=== PATIENT | male | born 1955 | race Hispanic/Latino ===

== ENCOUNTER 2017-01-24 18:27 | Emergency (ER) | payer MEDICAID, MEDICARE, OTHER ==
[2017-01-24 18:50] VITALS: TEMP 98.4; BMI 24.8
--- NOTE | 2017-01-24 19:16 | ED PDOC ---
Arrival/HPI - General Chief Complaint: Lower Extremity Problem/Injury Time Seen by Provider: 01/24/17 18:43 Historian: Patient - History of Present Illness Narrative History of Present Illness (Text): 01/24/17 19:20 61 y.o. male whose pmhx includes polycythemia vera and PAD with chronic claudication who comes to the ED with complaint of pain near the nail of the right big toe. He denies any injury or seeing any pus. He has no other pain in the foot and denies any history of gout. He reports no changes in his chronic claudication. He denies any fever or chest pain or sob. He takes aspirin daily but no other medications and reports continued smoking and has no primary care physician or any other physician he follows up with. Past Medical History - Past History Past History: No Previous - Infectious Disease Hx of Infectious Diseases: None - Tetanus Immunization Tetanus Immunization: Unknown - Cardiac Hx Peripheral Vascular Disease: Yes - Pulmonary Hx Respiratory Disorders: No - Neurological Hx Neurological Disorder: No - HEENT Hx HEENT Disorder: No - Renal Hx Renal Disorder: No - Endocrine/Metabolic Hx Endocrine Disorders: No - Hematological/Oncological Hx Blood Disorders: Yes Other/Comment: polycythemia vera - Integumentary Hx Dermatological Disorder: No - Musculoskeletal/Rheumatological Hx Falls: No - Gastrointestinal Hx Gastrointestinal Disorders: No - Genitourinary/Gynecological Hx Genitourinary Disorders: No - Psychiatric Hx Psychophysiologic Disorder: No Hx Substance Use: Yes (marijuana) - Surgical History Other/Comment: CARPAL TUNNEL - Suicidal Assessment Feels Threatened In Home Enviroment: No Family/Social History Family/Social History: No Known Family HX Smoking Status: Heavy Smoker > 10 Cigarettes Daily Hx Alcohol Use: Yes (weekly 3-4 beers) Hx Substance Use: Yes (marijuana) Allergies/Home Meds Allergies/Adverse Reactions: Allergies No Known Allergies Allergy (Verified 01/24/17 18:45) Review of Systems - Physician Review All systems were reviewed & negative as marked: Yes - Review of Systems Constitutional: Normal Respiratory: absent: SOB Cardiovascular: absent: Chest Pain Gastrointestinal: absent: Abdominal Pain, Nausea, Vomiting Musculoskeletal: Other (R big toe pain) Skin: Other (R big toe nail bed pain) Physical Exam Vital Signs Temp Pulse Resp BP Pulse Ox 01/24/17 18:43 98.4 F 88 18 135/95 H 97 Temperature: Afebrile Blood Pressure: Normal Pulse: Regular Respiratory Rate: Normal Appearance: Positive for: Well-Appearing, Non-Toxic, Comfortable Pain Distress: None Mental Status: Positive for: Alert and Oriented X 3 - Systems Exam Head: Present: Atraumatic, Normocephalic Pupils: Present: PERRL Conjunctiva: Present: Normal Mouth: Present: Moist Mucous Membranes Pharnyx: Present: Normal. No: ERYTHEMA, EXUDATE Neck: Present: Normal Range of Motion Respiratory/Chest: Present: Clear to Auscultation, Good Air Exchange. No: Respiratory Distress, Accessory Muscle Use Cardiovascular: Present: Regular Rate and Rhythm, Normal S1, S2. No: Murmurs Abdomen: Present: Normal Bowel Sounds. No: Tenderness, Distention, Peritoneal Signs Back: Present: Normal Inspection Upper Extremity: Present: Normal Inspection. No: Cyanosis, Edema Lower Extremity: Present: Normal ROM, Erythema (There is erythema at the periphery of the nailbed with tenderness in the region of the right big toe), Neurovascularly Intact. No: Edema, NORMAL PULSES (no DP pulses palpable or dopplerable in either foot but both feet are warm b/L), Cyanosis, Swelling, Temperature Abnormalties Neurological: Present: GCS=15, CN II-XII Intact, Speech Normal Skin: Present: Warm, Dry, Normal Color. No: Rashes, Cold Psychiatric: Present: Alert, Oriented x 3, Normal Insight, Normal Concentration Medical Decision Making ED Course and Treatment: 01/24/17 19:26 61 y.o. male with history of claudication/PAD who presents with peripheral nailbed pain of the right big toe. Area is warm and tender with no pus and findings are consistent with ingrown toenail. Pulses are not palpable or dopplerable, but such is the case for both feet which are warm, with no clinical cyanosis present or concern for critical limb ischemia at this time. Patient had abnormal ABIs last year but continues to smoke with no pmd and has not followed up. Will start on antibiotics for ingrown toenail and have him follow up with podiatry and Dr. Justice Will, who advised follow up last year. Will also give Dr. Hector's phone number for follow up, as the patient says he needs a pmd close to [address] [place] [address] where he lives, so he can walk there. Disposition/Present on Arrival - Present on Arrival Any Indicators Present on Arrival: No History of DVT/PE: No History of Uncontrolled Diabetes: No Urinary Catheter: No History of Decub. Ulcer: No History Surgical Site Infection Following: None - Disposition Have Diagnosis and Disposition been Completed?: Yes Diagnosis: Toe pain, right Disposition: HOME/ ROUTINE Disposition Time: 19:15 Patient Plan: Discharge Patient Problems: Current Active Problems Problem Status Onset Toe pain, right Acute Condition: GOOD Discharge Instructions (ExitCare): Ingrown Nail (ED) Additional Instructions: Stop smoking. Apply warm compresses to the affected area on the big toe. Take the antibiotics as prescribed. Make sure you follow up with podiatry, primary care, and Dr. Will. Return to the emergency department if any new concerning symptoms. Prescriptions: Cephalexin [Keflex] 500 mg PO TID #30 cap Sulfamethoxazole/Trimethoprim [Bactrim DS 800 mg-160 mg] 1 tab PO BID #20 tab Tramadol HCl/Acetaminophen [Ultracet Tablet] 1 - 2 tab PO Q8H PRN #20 tablet PRN Reason: Pain, Severe (8-10) Referrals: Venancio Hector MD [Staff Provider] - Follow up with primary Juan Junior DPM [Staff Provider] - Follow up with primary Justice Will MD [Staff Provider] - Follow up with primary
[2017-01-24] MEDS ORDERED: Tmp-Smz 800 mg-160 mg DS Tab PO STA (19:19)
[2017-01-24 19:35] VITALS: BP 127/83; PULSE 83; RESP 16; O2SAT 95
== END 2017-01-24 19:44 | disposition home or self-care (01) ==
LOC: ED 18:27
DX: M79.674 Pain in right toe(s) (principal)

== ENCOUNTER 2017-03-03 06:17 | Day surgery (SDC) | payer MEDICARE ==
[2017-02-26 13:17] VITALS: BMI 23.3
[2017-03-03] MEDS ORDERED: Lidocaine 2% Inj (20ml) ONE (06:40)
[2017-03-03] MEDS ORDERED: Iodixanol 320 MG/ML 100 ML BOTTLE IV ONE (06:41)
[2017-03-03] MEDS ORDERED: Iodixanol 320 MG/ML 200 ML BOTTLE IV ONE (06:41)
[2017-03-03] MEDS ORDERED: Nitroglycerin 50mg in D5W 50 MG/250 ML BOTTLE IV ONE (06:41)
[2017-03-03] MEDS ORDERED: Midazolam 2 MG/2 ML VIAL ONE ×3 (07:00→08:11)
[2017-03-03 07:04] LABS: BLOOD UREA NITROGEN 8 mg/dL (7-21); GFR AFRICAN-AMERICAN > 60; GFR NON-AFRICAN AMERICAN > 60
[2017-03-03 07:05] LABS: INR 0.99 (0.93-1.08); PARTIAL THROMBOPLASTIN TIME 27.7 Seconds (23.7-30.8); PROTHROMBIN TIME 10.7 Seconds (9.9-11.8)
[2017-03-03 07:10] LABS: BASO # 0.02 K/mm3 (0.0-2.0); BASO % 0.2 % (0.0-3.0); EOS # 0.6 (0.0-0.7); EOS % 5.3 % (1.5-5.0); GRAN # 6.72 (1.4-6.5); GRAN % 61.6 % (50.0-68.0); LYMPH # 2.6 (1.2-3.4); LYMPH % 24.2 % (22.0-35.0); MEAN CELL VOLUME 87.7 fl (80.0-105.0); MEAN CORPUSCULAR HEMOGLOBIN 31.4 pg (25.0-35.0); MEAN CORPUSCULAR HGB CONC 35.8 g/dl (31.0-37.0); MEAN PLATELET VOLUME 9.5 fl (7.0-11.0); MONO % 8.7 % (1.0-6.0); PLATELET COUNT 249 10^3/uL (120.0-450.0); RBC 5.83 10^6/uL (3.5-6.1); RED CELL DISTRIBUTION WIDTH 14.6 % (11.5-14.5); WHITE BLOOD COUNT 10.9 10^3/ul (4.5-11.0)
[2017-03-03 07:35] LABS: HEMOGLOBIN 18.3 g/dL (14.0-18.0)
[2017-03-03] MEDS ORDERED: Oxycodone/Acetaminophen 5/325 mg Tab PO PRN (08:45)
[2017-03-03] MEDS ORDERED: Sodium Chloride 0.45% 1,000 ML IV SCH (08:45)
[2017-03-03] MEDS ORDERED: Oxycodone/Acetaminophen 5/325 mg Tab ONE (08:59)
[2017-03-03] MEDS ORDERED: Oxycodone/Acetaminophen 5/325 mg Tab PO ONE (09:02)
[2017-03-03 09:32] VITALS: TEMP 97.6
[2017-03-03 13:16] VITALS: RESP 18
[2017-03-03 13:17] VITALS: BP 128/86; PULSE 78; O2SAT 100
--- NOTE | 2017-03-03 20:58 | VASCULAR ---
PROCEDURE: Abdominal aortogram and bilateral lower extremity runoff with right selective views. HISTORY: Smoker. Severe peripheral vascular disease. Right foot ischemia and rest pain. Previous complex right lower extremity endovascular intervention PHYSICIAN(S): Justice Will MD. TECHNIQUE: The relative risks and indications of the procedure were explained to the patient and consent obtained. The patient was hydrated prior to the procedure and the appropriate labs drawn. The patient was placed supine on the arteriogram table and the left groin prepped and draped in the usual sterile fashion. Conscious sedation and monitoring were provided throughout the procedure by a nurse. Via a left common femoral artery approach, a 5 Estonian sheath was placed in the left groin. Through the sheath and over a guidewire, a 5 Estonian flush catheter was placed in the abdominal aorta at the level of the renal arteries and a PA DSA abdominal aortogram performed. The catheter was pulled down to the aortic bifurcation and bilateral oblique DSA pelvic arteriograms performed. Overlapping bilateral lower extremity DSA arteriograms were obtained from the inguinal ligaments to the mid tibial arteries. The catheter was advanced over the bifurcation and placed in the right common femoral artery. A magnification view the distal run-off in lateral foot were obtained. The sheath was removed and hemostasis obtained. The patient tolerated the procedure well. FINDINGS: There are single renal arteries bilaterally which are patent. Calcification of the abdominal aorta is noted. There is a large marginal artery present, consistent with the patient's known proximal SMA occlusion. The aortic bifurcation is patent. The common and external iliac arteries are widely patent on two views. The internal iliac arteries are patent bilaterally. Right lower extremity: The right common femoral artery is patent. The right profunda femoral artery is hypertrophied. The right superficial femoral artery is occluded at its origin.. The right popliteal artery is occluded. The right trifurcation is occluded. Collaterals reconstitute a small distal right peroneal artery. The right anterior tibial and posterior tibial arteries are occluded. There is a large posterior collateral supplying the terminal posterior tibial artery. Extensive right pedal occlusive disease is seen. Left lower extremity: Left common femoral artery is patent. The left profunda femoral artery is hypertrophied.. The left superficial femoral artery is occluded at its origin. The left popliteal artery is occluded. The left trifurcation is occluded. There appears to be constitution of the mid left posterior tibial and anterior tibial arteries.. IMPRESSION: 1. Severe multilevel bilateral infrainguinal disease. 2. Long segment bilateral SFA popliteal and trifurcation occlusions. 3. Severe bilateral tibial occlusive disease. 4. Right pedal occlusive disease. 5. Large marginal artery consistent with the patient's known proximal SMA occlusion.
== END 2017-03-03 13:50 | disposition home or self-care (01) ==
LOC: SDSVAS 06:17
PROVIDERS: ATTEND Radiology Vascular & Interventional Radiology
DX: I70.221 Atherosclerosis of native arteries of extremities with rest pain, right leg (principal); F17.200 Nicotine dependence, unspecified, uncomplicated
CPT/HCPCS: 36246; 36415; 75625; 75716; 75774; 80048; 85025; 85610; 85730; 99152; C1760 ×2; C1769; C1887; C1894; J1644; J2250; J2405; J3010; J7030; Q9967

== ENCOUNTER 2017-07-16 17:00 | Inpatient (IN) | payer MEDICARE, MEDICAID, OTHER ==
[2017-07-16 17:05] VITALS: BMI 24.3
--- NOTE | 2017-07-16 17:33 | ED PDOC ---
Arrival/HPI - General Chief Complaint: Abdominal Pain Time Seen by Provider: 07/16/17 17:11 Historian: Patient - History of Present Illness Narrative History of Present Illness (Text): 07/16/17 17:26 A 62 year old male presents to the emergency department complaining of 3 week duration abdominal pain and lower back pain with lightheadedness. He notes that the pain has been worse for the past week. The patient states that even the pressure of his underwear waist band causes him pain. He states that he has not been able to eat and sleep due to pain. 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 Will. The patient denies fevers, chills, chest pain, shortness of breath, dyspnea on exertion, cough, nausea, vomiting, diarrhea, neck pain, urinary/bowel changes, or any other complaint. PMD: Dr. Coello Time/Duration: Other (3 weeks) Symptom Onset: Sudden Symptom Course: Unchanged Activities at Onset: Rest, Light Context: Home Past Medical History - Provider Review Nursing Documentation Reviewed: Yes - Past History Past History: No Previous - Infectious Disease Hx of Infectious Diseases: None - Tetanus Immunization Tetanus Immunization: Unknown - Cardiac Hx Pacemaker: No - Pulmonary Hx Respiratory Disorders: No - Neurological Hx Paralysis: No - HEENT Hx HEENT Disorder: No - Renal Hx Renal Disorder: No - Endocrine/Metabolic Hx Endocrine Disorders: No - Hematological/Oncological Hx Blood Transfusions: No - Integumentary Hx Dermatological Disorder: No - Musculoskeletal/Rheumatological Hx Musculoskeletal Disorders: Yes - Gastrointestinal Hx Gastrointestinal Disorders: No - Genitourinary/Gynecological Hx Genitourinary Disorders: No - Psychiatric Hx Emotional Abuse: No Hx Physical Abuse: No Hx Substance Use: No (DENIES) - Surgical History Other/Comment: CARPAL TUNNEL - Anesthesia Hx Anesthesia Reactions: No Hx Malignant Hyperthermia: No - Suicidal Assessment Feels Threatened In Home Enviroment: No Family/Social History - Physician Review Nursing Documentation Reviewed: Yes Family/Social History: No Known Family HX (Non- contributory) Smoking Status: Heavy Smoker > 10 Cigarettes Daily Hx Alcohol Use: Yes (weekly 3-4 beers) Hx Substance Use: No (DENIES) Allergies/Home Meds Allergies/Adverse Reactions: Allergies No Known Allergies Allergy (Verified 07/16/17 19:47) Home Medications: Home Meds Medication Instructions Recorded Confirmed Aspirin [Ecotrin] 81 mg PO DAILY 02/26/17 07/16/17 Review of Systems - Physician Review All systems were reviewed & negative as marked: Yes - Review of Systems Constitutional: absent: Fevers, Night Sweats Respiratory: absent: SOB Cardiovascular: absent: Chest Pain Gastrointestinal: Abdominal Pain. absent: Diarrhea, Nausea, Vomiting Physical Exam Vital Signs Reviewed: Yes Vital Signs Temp Pulse Resp BP Pulse Ox 07/16/17 19:55 77 17 120/67 98 07/16/17 18:49 70 18 142/78 100 07/16/17 17:05 97.8 F 88 18 136/88 98 07/16/17 17:04 97.8 F 88 17 136/88 98 Appearance: Positive for: Well-Appearing, Non-Toxic, Comfortable Pain Distress: None Mental Status: Positive for: Alert and Oriented X 3 - Systems Exam Head: Present: Atraumatic, Normocephalic Pupils: Present: PERRL Extroacular Muscles: Present: EOMI Conjunctiva: Present: Normal Mouth: Present: Moist Mucous Membranes Neck: Present: Normal Range of Motion Respiratory/Chest: Present: Clear to Auscultation, Good Air Exchange. No: Respiratory Distress, Accessory Muscle Use Cardiovascular: Present: Regular Rate and Rhythm, Normal S1, S2. No: Murmurs Abdomen: Present: Tenderness (Diffuse tenderness ) Back: Present: Normal Inspection Upper Extremity: Present: Normal Inspection. No: Cyanosis, Edema Lower Extremity: Present: Normal Inspection, NORMAL PULSES (Femoral pulses 2+). No: Edema Neurological: Present: GCS=15, CN II-XII Intact, Speech Normal Skin: Present: Warm, Dry, Normal Color. No: Rashes Psychiatric: Present: Alert, Oriented x 3, Normal Insight, Normal Concentration Medical Decision Making ED Course and Treatment: 07/16/17 17:36 Impression: A 62 year old male presents to the emergency department complaining of 3 week duration abdominal pain with associated back pain. Plan: -- Angio Abdomen/Pelvis CT -- EKG -- Labs -- Urinalysis -- Reassess and disposition Prior Visits: Notes and results from previous visits were reviewed. Patient was last seen in the emergency department on 01/24/17. The patient was seen in the emergency department for pain near the nail of the right toe. The patient was discharged home. Progress Notes: US Abdomen Limited, Right Upper Quadrant Dictated and Authenticated by: Ginny Thomas MD 07/16/2017 8:28 PM Eastern Time ([place] & [place]) IMPRESSION: No gallstones or ductal dilatation. Patient was not tender over the gallbladder - Lab Interpretations Lab Results: 07/16/17 17:20 07/16/17 17:20 Lab Results 07/16/17 17:50: pO2 24 L, VBG pH 7.41, VBG pCO2 43.0, VBG HCO3 27.3, VBG Total CO2 28.6 H, VBG O2 Sat (Calc) 58.9, VBG Base Excess 2.2 H, VBG Potassium 5.0, Glucose 86, Lactate 1.2, FiO2 21.0, Sodium 139.0, Chloride 102.0, Venous Blood Potassium 5.0 07/16/17 17:30: Blood Type O NEGATIVE, Antibody Screen Negative, BBK History Checked No verified bt 07/16/17 17:20: Sodium 144, Potassium 4.1, Chloride 105, Carbon Dioxide 25, Anion Gap 18, BUN 10, Creatinine 0.8, Est GFR ( Amer) > 60, Est GFR (Non- Af Amer) > 60, Random Glucose 91, Calcium 10.0, Total Bilirubin 1.0, AST 22, ALT 24, Alkaline Phosphatase 113, Total Creatine Kinase 24 L, Total Protein 8.3 , Albumin 4.6, Globulin 3.8, Albumin/Globulin Ratio 1.2, Lipase 1366 H 07/16/17 17:20: PT 12.0, INR 1.10 H, APTT 38.0 H 07/16/17 17:20: WBC 12.3 H, RBC 6.33 H, Hgb 19.1 H*, Hct 55.2 H*, MCV 87.2, MCH 30.2, MCHC 34.6, RDW 13.7, Plt Count 379, MPV 9.8, Gran % 69.7 H, Lymph % (Auto ) 20.3 L, Dent % (Auto) 6.6 H, Eos % (Auto) 3.2, Baso % (Auto) 0.2, Gran # 8.60 H, Lymph # 2.5, Dent # 0.8 H, Eos # 0.4, Baso # 0.02 - RAD Interpretation Radiology Orders: 07/16/17 18:14 GALLBLADDER & COMMON DUCT [US] Stat 07/17/17 07:00 ABD & PELVIS IV CONTRAST ONLY [CT] Routine - Medication Orders Current Medication Orders: Sodium Chloride (Sodium Chloride 0.9%) 1,000 mls @ 125 mls/hr IV .Q8H MADAI Discontinued Medications Hydromorphone HCl (Dilaudid) 1 mg IVP STAT STA Stop: 07/16/17 18:40 Last Admin: 07/16/17 18:46 Dose: 1 mg MAR Pain Assessment Document 07/16/17 18:46 CNR (Rec: 07/16/17 18:48 CNR [id number]) Pain Reassessment Is this a pain reassessment? Yes Location Pain Location Body Site Abdomen Description Description Constant IVP Administration Document 07/16/17 18:46 CNR (Rec: 07/16/17 18:48 CNR [id number]) Charges for Administration # of IVP Administrations 1 Hydromorphone HCl (Dilaudid) 1 mg IVP STAT STA Stop: 07/16/17 20:12 Sodium Chloride (Sodium Chloride 0.9%) 1,000 mls @ 999 mls/hr IV .Q1H1M STA Stop: 07/16/17 19:14 Last Admin: 07/16/17 18:22 Dose: 999 mls/hr eMAR Start Stop Document 07/16/17 18:22 CNR (Rec: 07/16/17 18:22 CNR [id number]) Intravenous Solution Start Date 07/16/17 Start Time 18:22 Morphine Sulfate (Morphine) 4 mg IVP STAT STA Stop: 07/16/17 18:05 Last Admin: 07/16/17 18:12 Dose: 4 mg MAR Pain Assessment Document 07/16/17 18:12 CNR (Rec: 07/16/17 18:12 CNR [id number]) Pain Reassessment Is this a pain reassessment? Yes Location Pain Location Body Site Abdomen Description Description Constant IVP Administration Document 07/16/17 18:12 CNR (Rec: 07/16/17 18:12 CNR [id number]) Charges for Administration # of IVP Administrations 1 Pneumococcal Polyvalent Vaccine (Pneumovax 23 Vaccine) 0.5 ml IM .ONCE ONE Stop: 07/16/17 20:39 Disposition/Present on Arrival - Present on Arrival Any Indicators Present on Arrival: No History of DVT/PE: No History of Uncontrolled Diabetes: No Urinary Catheter: No History of Decub. Ulcer: No History Surgical Site Infection Following: None - Disposition Have Diagnosis and Disposition been Completed?: Yes Diagnosis: Acute pancreatitis Disposition: HOSPITALIZED Disposition Time: 18:46 Condition: STABLE
[2017-07-16 18:00] LABS: BASO # 0.02 K/mm3 (0.0-2.0); BASO % 0.2 % (0.0-3.0); EOS # 0.4 (0.0-0.7); EOS % 3.2 % (1.5-5.0); GRAN # 8.6 (1.4-6.5); GRAN % 69.7 % (50.0-68.0); LYMPH # 2.5 (1.2-3.4); LYMPH % 20.3 % (22.0-35.0); MEAN CELL VOLUME 87.2 fl (80.0-105.0); MEAN CORPUSCULAR HEMOGLOBIN 30.2 pg (25.0-35.0); MEAN CORPUSCULAR HGB CONC 34.6 g/dl (31.0-37.0); MEAN PLATELET VOLUME 9.8 fl (7.0-11.0); MONO # 0.8 (0.1-0.6); MONO % 6.6 % (1.0-6.0); RBC 6.33 10^6/uL (3.5-6.1); RED CELL DISTRIBUTION WIDTH 13.7 % (11.5-14.5); WHITE BLOOD COUNT 12.3 10^3/ul (4.5-11.0)
[2017-07-16 18:02] LABS: VENOUS BLOOD GAS BASE EXCESS 2.2 mmol/L (0.0-2.0); VENOUS BLOOD GAS PO2 24 mm/Hg (30-55); VENOUS BLOOD PH 7.41 (7.32-7.43)
[2017-07-16] MEDS ORDERED: Morphine 4 mg/ml ISec IVP STA (18:04)
[2017-07-16 18:08] LABS: HEMOGLOBIN 19.1 g/dL (14.0-18.0)
[2017-07-16 18:11] LABS: ALB/GLOB RATIO 1.2 (1.1-1.8); ALBUMIN 4.6 g/dL (3.0-4.8); ALT/SGPT 24 U/L (7-56); AST/SGOT 22 U/L (17-59); BLOOD UREA NITROGEN 10 mg/dL (7-21); GFR AFRICAN-AMERICAN > 60; GFR NON-AFRICAN AMERICAN > 60; LIPASE 1366 U/L (23-300)
[2017-07-16 18:13] LABS: INR 1.1 (0.93-1.08)
[2017-07-16] MEDS ORDERED: Sodium Chloride 0.9% 1,000 ML IV STA (18:14)
[2017-07-16] MEDS ORDERED: HYDROmorphone 1 mg/ml ISec IVP STA ×2 (18:39→20:11)
--- NOTE | 2017-07-16 20:28 | US ---
EXAM: US Abdomen Limited, Right Upper Quadrant EXAM DATE/TIME: 07/16/2017 6:14 PM CLINICAL HISTORY: 62 years old, male; Pain; Abdominal pain; Generalized; Additional info: Pancreatitis TECHNIQUE: Real-time ultrasound of the right upper quadrant with image documentation. COMPARISON: There are no prior studies for comparison. FINDINGS: Liver: Liver appears mildly enlarged. Echotexture is uniform. There is hepatopedal flow in the main portal vein. Gallbladder: Gallbladder is distended with no stones, sludge or wall thickening. Common bile duct: Common bile duct measures 4 mm in diameter. Pancreas: Pancreas is partially obscured by bowel gas. Pancreatic duct measures approximately 3 mm. Right kidney: Right kidney is normal in size. There is a small right renal cyst. Aorta: Visualized portions of the aorta and inferior vena cava are unremarkable. IMPRESSION: No gallstones or ductal dilatation Patient was not tender over the gallbladder
[2017-07-16] MEDS ORDERED: Pneumococcal 23-Valent Vaccine IM ONE (20:38)
[2017-07-16] MEDS ORDERED: Influenza Vaccine 60 mcg/0.5 mL SYR (4YR UP) IM ONE (20:38)
[2017-07-16 22:45] LABS: URINE BILIRUBIN SMALL (NEGATIVE); URINE BLOOD NEGATIVE (NEGATIVE); URINE GLUCOSE (UA) NEGATIVE (NEGATIVE); URINE LEUKOCYTE ESTERASE NEGATIVE Leu/uL (NEGATIVE); URINE NITRATE NEGATIVE (NEGATIVE); URINE PROTEIN NEGATIVE mg/dL (<30 mg/dL); URINE UROBILINOGEN 0.2 E.U./dL (<1 E.U./dL)
[2017-07-16 22:48] LABS: URINE APPEARANCE CLEAR (CLEAR); URINE COLOR YELLOW (YELLOW)
[2017-07-17] MEDS: Sodium Chloride 0.9% 1,000 ML IV SCH ×3 (01:11→11:19)
[2017-07-17 07:14] LABS: BASO # 0.02 K/mm3 (0.0-2.0); BASO % 0.2 % (0.0-3.0); EOS # 0.7 (0.0-0.7); GRAN # 6.71 (1.4-6.5); GRAN % 65.5 % (50.0-68.0); LYMPH % 19.3 % (22.0-35.0); MEAN CELL VOLUME 86.8 fl (80.0-105.0); MEAN CORPUSCULAR HEMOGLOBIN 30.1 pg (25.0-35.0); MEAN CORPUSCULAR HGB CONC 34.6 g/dl (31.0-37.0); MEAN PLATELET VOLUME 9.3 fl (7.0-11.0); MONO # 0.8 (0.1-0.6); RBC 5.55 10^6/uL (3.5-6.1); RED CELL DISTRIBUTION WIDTH 13.8 % (11.5-14.5); WHITE BLOOD COUNT 10.3 10^3/ul (4.5-11.0)
[2017-07-17 07:20] LABS: IRON 65 ug/dL (45-180)
[2017-07-17 07:23] LABS: HEMOGLOBIN 16.7 g/dL (14.0-18.0); INR 1.15 (0.93-1.08); PROTHROMBIN TIME 12.7 SECONDS (9.4-12.5)
[2017-07-17] MEDS ORDERED: HYDROmorphone 1 mg/ml ISec IVP STA (07:28)
[2017-07-17 07:29] LABS: % IRON SATURATION 30 % (20-55); TOTAL IRON BINDING CAPACITY 220 ug/dL (261-462)
[2017-07-17 07:30] LABS: ALB/GLOB RATIO 1.2 (1.1-1.8); ALBUMIN 3.5 g/dL (3.0-4.8); ALT/SGPT 29 U/L (7-56); AMYLASE 109 U/L (35-125); AST/SGOT 16 U/L (17-59); BLOOD UREA NITROGEN 8 mg/dL (7-21); CALCIUM 8.9 mg/dL (8.4-10.5); GFR AFRICAN-AMERICAN > 60; GFR NON-AFRICAN AMERICAN > 60; LIPASE 135 U/L (23-300)
[2017-07-17 07:38] LABS: FREE T4 1.34 ng/dL (0.78-2.19)
[2017-07-17] MEDS ORDERED: Iohexol 350 MG/100 ML VIAL ONE (07:38)
--- NOTE | 2017-07-17 08:43 | CT ---
PROCEDURE: CT Abdomen and Pelvis with contrast HISTORY: pancreatitis COMPARISON: None. TECHNIQUE: Contrast dose: 100 cc Omnipaque 350 Radiation dose: Total exam DLP = 388.40 mGy-cm. This CT exam was performed using one or more of the following dose reduction techniques: Automated exposure control, adjustment of the mA and/or kV according to patient size, and/or use of iterative reconstruction technique. FINDINGS: LOWER THORAX: Unremarkable. LIVER: Hepatic steatosis. No focal masses. No intrahepatic bile duct dilatation or perihepatic ascites. GALLBLADDER AND BILE DUCTS: Unremarkable. PANCREAS: Unremarkable. No gross lesion or ductal dilatation. SPLEEN: Unremarkable. ADRENALS: Unremarkable. No mass. KIDNEYS AND URETERS: Unremarkable. No hydronephrosis. No solid mass. Incidental finding(s): Bilateral simple renal cysts. Nonobstructing punctate calculi left kidney non larger than 2 mm. VASCULATURE: Unremarkable. No aortic aneurysm. BOWEL: Diverticulosis without an acute inflammatory component or other associated pathologic process. APPENDIX: Normal appendix. PERITONEUM: Unremarkable. No free fluid. No free air. LYMPH NODES: Unremarkable. No enlarged lymph nodes. BLADDER: Unremarkable. REPRODUCTIVE: Unremarkable. BONES: No acute fracture. OTHER FINDINGS: None. IMPRESSION: No CT evidence of pancreatitis. Additional benign and/or incidental findings described above.
[2017-07-17 16:41] VITALS: BP 117/78; PULSE 78; RESP 18; TEMP 98.4; O2SAT 97
--- NOTE | 2017-07-17 18:26 | CARD ---
APPROVED REPORT EKG Measurement Heart [id number] MS [id number] <Conclusion> Sinus rhythm with sinus arrhythmia with occasional premature ventricular complexes Right atrial enlargement Borderline ECG
--- NOTE | 2017-07-17 21:34 | CON ---
DATE: 07/17/2017 REASON FOR CONSULTATION: Abdominal pain, elevated lipase. HISTORY OF PRESENT ILLNESS: This 62-year-old patient with significant past medical history of peripheral vascular disease status post angioplasty and thrombolysis, history of polycythemia vera being followed by Dr. Ortega, presented with lower abdominal discomfort, but his symptoms started about 3 weeks' ago with lower abdominal discomfort and also low back pain. The symptoms got worse, came to the ER and he was afraid of drinking and eating because of the fear of worsening of his pain. At the time of admission, he was found to have an elevated hemoglobin, hemoglobin was 19.1. Patient also noticed some difficulty in bowel movements over the last 2 to 3 weeks'. No bleeding per rectum, never had a colonoscopy done in the past. PAST MEDICAL HISTORY: Significant as above. SOCIAL HISTORY: Denies smoking or alcohol. REVIEW OF SYSTEMS: Positive as above otherwise unremarkable. Patient feels much better now, urination is better. PHYSICAL EXAMINATION GENERAL: The patient is lying on the bed, not in acute distress. VITAL SIGNS: Temperature 98.4, pulse 78, blood pressure 117/78. HEENT: Atraumatic. Anicteric. NECK: Supple. HEART: S1 and S2 heard. LUNGS: Bilateral air entry present. ABDOMEN: Soft. There is no tenderness. EXTREMITIES: No edema. No cyanosis. NEUROLOGIC: Alert, oriented, moves all the extremities. LABORATORY DATA: Hemoglobin on admission was 19.1, now it is 16.7, hematocrit 48.2, WBC 10.3, platelets 309. Chemistry is essentially unremarkable. IMPRESSION: This 62-year-old patient with significant peripheral vascular disease and admitted with abdominal pain, mainly the lower abdominal discomfort, bloating, found to have mildly elevated lipase level and patient had CT scan of the abdomen and pelvis done and it showed only diverticulosis, otherwise unremarkable. Gallbladder ultrasound showed no gallstones. Mild elevated lipase level is probably nonspecific may be secondary to low flow state. RECOMMENDATIONS: We would recommend: 1. Increase hydration. The patient has been on aspirin, advised to continue that. The patient would benefit from the elective colonoscopic evaluation. Patient is keen to go home, advised to continue the hydration at home. If there is any worsening of the symptoms, the patient was advised to come back to the ER. 2. Benefit from the elective endoscopy and colonoscopic evaluation and also the patient was advised to follow up with Dr. Nasir Ortega and PCP. Thank you very much for allowing us to participate in the care of the patient. Kane Zaragoza MD MTDAllyson
--- NOTE | 2017-07-17 21:51 | CON ---
HEMATOLOGY CONSULTATION DATE: HISTORY OF PRESENT ILLNESS: This is a 62-year-old man with an elevated hemoglobin. The patient tells me that he was told when he was in [facility] in the past that he had a very high red blood count, but was never treated for this. He does smoke cigarettes. Alcohol negative. PHYSICAL EXAMINATION: SKIN: No petechiae. No bruises. HEENT: Anicteric. NODES: Nonpalpable in axillary, cervical, supraclavicular or inguinal regions. LUNGS: Clear at present. No wheezing. No rhonchi. No rales. No rubs. HEART: S1 and S2. ABDOMEN: Shows no liver, no spleen, at present no tenderness and no rebound. EXTREMITIES: No edema. CORPORATE GENERAL MANAGER: No focal findings. LABORATORY DATA: On presentation yesterday, his RBC number was 6.33, then was come down to 5.55 which is a normal. The hemoglobin was 19.1 and it is down to 16.7, hematocrit 55 down to 48, MCV 87, and the platelet count is 310, white count is 10.3. This is most unlikely due to a primary polycythemia. I believe this is a combination of underlying cigarette smoking and some element of emphysema plus some element of dehydration. For his abdominal pain, he was not eating and drinking before he came into the hospital, this is now improved. I told him that I was going to check for the JAK2 chromosome abnormality just to make sure that to be completed polycythemia vera. My impression is this is secondary polycythemia. He should try to get off the cigarette smoking, we talked about that; and with hydration, he is somewhat better. So, there is no treatment at this point and I sent off the blood test that will come back in about a week. Nasir Ortega MD
--- NOTE | 2017-07-19 03:00 | DS ---
HOSPITAL COURSE: This is 62-year-old man, who came to the office once in January as a new patient. He presented to the emergency room with abdominal pain for several days and somewhere a history of polycythemia vera was discovered, which was not mentioned in the office. The patient reports midepigastric abdominal pain for few days. On laboratory evaluation in ER, his amylase was noted to be elevated. He was admitted with pancreatitis diagnosis and treated with IV fluids. The following morning, his amylase was normal. He was completely asymptomatic. His hemoglobin had dropped from 19 to 16 with IV hydration. Case was discussed with Cardiology, and GI. Hematology notes were appreciated. JAK2 tests were ordered to confirm the diagnosis of polycythemia vera, but this will take several days. Since the patient was asymptomatic and comfortable, he was ready for discharge to home. FINAL DISCHARGE DIAGNOSES: 1. Pancreatitis, diagnosis made by elevated amylase and symptoms of midepigastric abdominal pain. 2. Questionable history of polycythemia vera versus acute hemoconcentration versus secondary to tobacco use. 3. Peripheral vascular disease. 4. Tobacco use disorder. 5. Chronic obstructive pulmonary disease. The patient will follow up with us in the office in approximately 1 week's time. Venancio Hectro MD AUGUST
--- NOTE | 2017-07-19 03:04 | HP ---
CHIEF COMPLAINT: Mid epigastric abdominal pain. HISTORY OF PRESENT ILLNESS: This is a 62-year-old man relatively new patient to my practice, so I am meeting for the first time here in the hospital. He presented to the Emergency Room [facility], [place] complaining of worsening mid gastric abdominal pain. In the ER, amylase was found to be elevated, diagnosis of pancreatitis was made. Ultrasound and CT scan of the abdomen were negative. Patient was treated with IV fluids. His hemoglobin was noted to be high. There was questionable history of polycythemia vera, although at one time the patient was in the office he made no mention of this to us and he was admitted. PAST MEDICAL HISTORY: Significant for painful ingrown toenail in 01/2017, peripheral vascular disease, followed by Dr. Justice Will, COPD, tobacco use, for which he takes Pletal 100 mg b.i.d. in the past, but has stopped taking them now. His compliance with aspirin 81 mg daily is uncertain. ALLERGIES: HE HAS NO KNOWN ALLERGIES. SOCIAL HISTORY: He continues to smoke but less than one pack of cigarettes per day. Rarely drinks alcohol. Does not drink coffee. Eats a regular diet. He is disabled from work due to his peripheral vascular disease. 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 He is single with no children, . FAMILY HISTORY: Coronary artery disease, his mother had breast cancer as did his sister. His father of stroke and coronary artery disease and his 3 other sisters are alive and well. REVIEW OF SYSTEMS: On multiple point is negative other than peripheral artery disease, claudication, and symptoms related to smoking, cough, and COPD. PHYSICAL EXAMINATION GENERAL: Patient is seen in Emergency Room this night with mid epigastric pain. HEENT: Conjunctivae are pink, mucous membranes are moist. LUNGS: Reported to be clear. HEART: Regular, not tachycardiac. EXTREMITIES: Showed no edema. IMPRESSION: Pancreatitis with elevated amylase, although I am uncertain as to the cause as gall bladder, bile ducts looked normal. There is no history of alcohol consumption or elevated triglycerides. I wonder if this could be related to ischemia as is his peripheral artery disease. PLAN: GI consultation and Hematology consultation called to confirm diagnosis. We will follow closely and continue IV hydration and analgesics on p.r.n. basis. Venancio Hector MD AUGUST
--- NOTE | 2017-07-22 03:24 | CON ---
DATE: 07/21/2017 TIME: 4:30 p.m. CHIEF COMPLAINT/HISTORY OF PRESENT ILLNESS: This is a noncompliant 62-year-old smoker with probable secondary polycythemia vera, who has had two recent visits to the emergency room for significant abdominal pain. His white count was elevated. He describes a crampy abdominal pain for the past several days. He denies bloody bowel movements. He has not been eating. PAST MEDICAL HISTORY: Significant for polycythemia vera. Confusing genetic markers have been obtained in the past. He has been worked up by Dr. Ortega. He is a heavy smoker and noncompliant. An aortogram and runoff was performed in February,. This revealed bilateral SFA, popliteal, trifurcation, and tibial occlusive disease. He is not a candidate for endovascular therapy. He was evaluated by Dr. Dela Cruz and not considered a good candidate for bypass. He has been on antiplatelet therapy. I reviewed his relevant imaging. In February, he had a markedly enlarged NURY, which collateralized to his proximal SMA occlusion. There was a 50% focal stenosis of the proximal NURY. His celiac axis was patent. Since that time, he has thrombosed his large NURY. Reviewed the imaging, this appears to be a thrombotic or embolic event rather than atherosclerotic progression. All options were discussed with the patient and his multiple referrals. We will attempt to open either the SMA preferably or the NURY. Catheter thrombolysis may need to be performed given the probable soft thrombus present. The patient should have a thorough cardiac evaluation to exclude cardioembolic events. He should have his polycythemia reevaluated and treated. I, believe, that he should be on oral anticoagulation, preferably a DOAC going forward. He must quit smoking, which I explained to him once again. Justice Will MD AUGUST
== END 2017-07-17 19:13 | disposition home or self-care (01) | DRG 440 ==
LOC: ED 17:00 → ERH 18:46 → 5RNO 20:20 → OBSVTOIN 07-17 16:35
PROVIDERS: ADMIT Internal Medicine; ATTEND Internal Medicine
DX: K85.90 Acute pancreatitis without necrosis or infection, unspecified (principal); D45 Polycythemia vera; F17.210 Nicotine dependence, cigarettes, uncomplicated; I73.9 Peripheral vascular disease, unspecified; J44.9 Chronic obstructive pulmonary disease, unspecified; Z91.19 Patient's noncompliance with other medical treatment and regimen; Z79.82 Long term (current) use of aspirin; Z80.3 Family history of malignant neoplasm of breast; Z82.3 Family history of stroke; Z82.49 Family history of ischemic heart disease and other diseases of the circulatory system

== ENCOUNTER 2017-07-19 05:13 | Inpatient (IN) | payer MEDICARE, MEDICAID, OTHER ==
[2017-07-19 05:21] VITALS: BMI 23.0
--- NOTE | 2017-07-19 05:25 | ED PDOC ---
Arrival/HPI - General Time Seen by Provider: 07/19/17 05:17 Historian: Patient - History of Present Illness Narrative History of Present Illness (Text): 07/19/17 05:24 David Jordan is a 62 year old male, whose past medical history includes peripheral vascular disease and COPD, who presents to the Emergency department complaining of lower abdominal pain, worsening tonight. Patient also notes some associated light-headedness. Patient was recently admitted to the hospital on 07/16/2017 for similar symptoms and seen by GI, advised to schedule outpatient colonscopy. Patient denies any fever, chills, chest pain, shortness of breath, nausea, vomiting, diarrhea, urinary symptoms, back pain, neck pain, headache, dizziness, or any other complaints. Time/Duration: Other (few days) Symptom Onset: Gradual Symptom Course: Intermittent, Worsening Activities at Onset: Light Context: Home Past Medical History - Provider Review Nursing Documentation Reviewed: Yes - Past History Past History: No Previous - Infectious Disease Hx of Infectious Diseases: None - Tetanus Immunization Tetanus Immunization: Unknown - Cardiac Hx Pacemaker: No - Pulmonary Hx Respiratory Disorders: No - Neurological Hx Paralysis: No - HEENT Hx HEENT Disorder: No - Renal Hx Renal Disorder: No - Endocrine/Metabolic Hx Endocrine Disorders: No - Hematological/Oncological Hx Blood Transfusions: No - Integumentary Hx Dermatological Disorder: No - Musculoskeletal/Rheumatological Hx Musculoskeletal Disorders: Yes - Gastrointestinal Hx Gastrointestinal Disorders: No - Genitourinary/Gynecological Hx Genitourinary Disorders: No - Psychiatric Hx Emotional Abuse: No Hx Physical Abuse: No Hx Substance Use: No (DENIES) - Surgical History Other/Comment: CARPAL TUNNEL - Anesthesia Hx Anesthesia Reactions: No Hx Malignant Hyperthermia: No - Suicidal Assessment Feels Threatened In Home Enviroment: No Family/Social History - Physician Review Nursing Documentation Reviewed: Yes Family/Social History: Unknown Family HX Smoking Status: Heavy Smoker > 10 Cigarettes Daily Hx Alcohol Use: Yes (weekly 3-4 beers) Hx Substance Use: No (DENIES) Allergies/Home Meds Allergies/Adverse Reactions: Allergies No Known Allergies Allergy (Verified 07/19/17 05:21) Home Medications: Home Meds Medication Instructions Recorded Confirmed No Known Home Med 07/19/17 07/19/17 Review of Systems - Physician Review All systems were reviewed & negative as marked: Yes - Review of Systems Constitutional: Normal. absent: Fevers Eyes: Normal ENT: Normal Respiratory: Normal. absent: SOB, Cough Cardiovascular: Normal. absent: Chest Pain Gastrointestinal: Abdominal Pain. absent: Diarrhea Genitourinary Male: Normal. absent: Dysuria, Frequency, Hematuria, Urinary Output Changes Musculoskeletal: Normal. absent: Back Pain, Neck Pain Skin: Normal. absent: Rash Neurological: Normal. absent: Headache, Dizziness Endocrine: Normal Hemo/Lymphatic: Normal Psychiatric: Normal Physical Exam Vital Signs Reviewed: Yes Temperature: Afebrile Blood Pressure: Normal Pulse: Regular Respiratory Rate: Normal Appearance: Positive for: Well-Appearing, Non-Toxic, Comfortable Pain Distress: None Mental Status: Positive for: Alert and Oriented X 3 - Systems Exam Head: Present: Atraumatic, Normocephalic Pupils: Present: PERRL Extroacular Muscles: Present: EOMI Conjunctiva: Present: Normal Mouth: Present: Moist Mucous Membranes Pharnyx: Present: Normal Neck: Present: Normal Range of Motion Respiratory/Chest: Present: Clear to Auscultation, Good Air Exchange. No: Respiratory Distress, Accessory Muscle Use Cardiovascular: Present: Regular Rate and Rhythm, Normal S1, S2. No: Murmurs Abdomen: Present: Tenderness (lower abdomen), Normal Bowel Sounds. No: Distention, Peritoneal Signs, Rebound, Guarding Back: Present: Normal Inspection Upper Extremity: Present: Normal Inspection. No: Cyanosis, Edema Lower Extremity: Present: Normal Inspection. No: Edema Neurological: Present: GCS=15, CN II-XII Intact, Speech Normal, Motor Func Grossly Intact, Normal Sensory Function Skin: Present: Warm, Dry, Normal Color. No: Rashes Psychiatric: Present: Alert, Oriented x 3, Normal Insight, Normal Concentration Medical Decision Making ED Course and Treatment: 07/19/17 05:25 Impression: 62 year old male complaining of lower abdominal pain over past few days, worsening tonight. Plan: -- EKG -- Labs, lipase -- IV fluids -- Toradol -- Reassess and disposition Prior Visits: Notes and results from previous visits were reviewed. On 07/16/2017, pt was seen in the Emergency department for abdominal pain, lower back pain, and light-headedness. Pt was admitted to the hospital for further evaluation. Progress Notes: Reviewed EKG, NSR at 85 bpm. Occasional PAC. Non-specific ST changes. - Lab Interpretations Lab Results: 07/19/17 05:43 07/19/17 05:43 Lab Results 07/19/17 05:43: WBC 17.6 H D, RBC 5.82, Hgb 17.6, Hct 50.2, MCV 86.3, MCH 30.2, MCHC 35.1, RDW 13.9, Plt Count 338, MPV 9.6 07/19/17 05:43: Sodium 144, Potassium 3.9, Chloride 105, Carbon Dioxide 28, Anion Gap 15, BUN 9, Creatinine 0.7 L, Est GFR ( Amer) > 60, Est GFR (Non -Af Amer) > 60, Random Glucose 141 H, Calcium 9.6, Total Bilirubin 0.7, AST 26, ALT 26, Alkaline Phosphatase 94, Total Protein 7.5, Albumin 4.2, Globulin 3.3, Albumin/Globulin Ratio 1.3, Lipase 106 - EKG Interpretation Interpreted by ED Physician: Yes Type: 12 lead EKG - Medication Orders Current Medication Orders: Discontinued Medications Sodium Chloride (Sodium Chloride 0.9%) 1,000 mls @ 999 mls/hr IV .Q1H1M STA Stop: 07/19/17 06:27 Last Admin: 07/19/17 05:49 Dose: 999 mls/hr eMAR Start Stop Document 07/19/17 05:49 AD (Rec: 07/19/17 05:49 AD [id number]) Intravenous Solution Start Date 07/19/17 Start Time 05:49 Ketorolac Tromethamine (Toradol) 30 mg IVP ONCE ONE Stop: 07/19/17 05:28 Last Admin: 07/19/17 05:49 Dose: 30 mg MAR Pain Assessment Document 07/19/17 05:49 AD (Rec: 07/19/17 05:50 AD [id number]) Pain Reassessment Is this a pain reassessment? No Presence of Pain Presence of Pain Yes Pain Scale Used Pain Scale Used Numeric Location Pain Location Body Site Abdomen Description Intensity of Pain at present 10 IVP Administration Document 07/19/17 05:49 AD (Rec: 07/19/17 05:50 AD [id number]) Charges for Administration # of IVP Administrations 1 Morphine Sulfate (Morphine) 4 mg IVP STAT STA Stop: 07/19/17 06:26 - Transfer of Care Patient signed out to Dr:: Carolin Pending Radiology Studies:: CT Abdomen/pelvis/reassess/final disposition - Scribe Statement Chelle Sun Provider Scribe Attestation: All medical record entries made by the Scribe were at my direction and personally dictated by me. I have reviewed the chart and agree that the record accurately reflects my personal performance of the history, physical exam, medical decision making, and the department course for this patient. I have also personally directed, reviewed, and agree with the discharge instructions and disposition. Disposition/Present on Arrival - Present on Arrival Any Indicators Present on Arrival: No History of DVT/PE: No History of Uncontrolled Diabetes: No Urinary Catheter: No History Surgical Site Infection Following: None - Disposition Have Diagnosis and Disposition been Completed?: No Diagnosis: Abdominal pain Disposition Time: 07:00 Patient Problems: Current Active Problems Problem Status Onset Abdominal pain Acute Condition: STABLE
[2017-07-19] MEDS ORDERED: Sodium Chloride 0.9% 1,000 ML IV STA (05:27)
[2017-07-19 06:04] LABS: HEMOGLOBIN 17.6 g/dL (14.0-18.0); MEAN CELL VOLUME 86.3 fl (80.0-105.0); MEAN CORPUSCULAR HEMOGLOBIN 30.2 pg (25.0-35.0); MEAN CORPUSCULAR HGB CONC 35.1 g/dl (31.0-37.0); MEAN PLATELET VOLUME 9.6 fl (7.0-11.0); RBC 5.82 10^6/uL (3.5-6.1); RED CELL DISTRIBUTION WIDTH 13.9 % (11.5-14.5); WHITE BLOOD COUNT 17.6 10^3/ul (4.5-11.0)
[2017-07-19] MEDS ORDERED: Morphine 4 mg/ml ISec IVP STA ×2 (06:25→08:06)
[2017-07-19 06:33] LABS: ALB/GLOB RATIO 1.3 (1.1-1.8); ALBUMIN 4.2 g/dL (3.0-4.8); ALT/SGPT 26 U/L (7-56); AST/SGOT 26 U/L (17-59); BLOOD UREA NITROGEN 9 mg/dL (7-21); CALCIUM 9.6 mg/dL (8.4-10.5); GFR AFRICAN-AMERICAN > 60; GFR NON-AFRICAN AMERICAN > 60; LIPASE 106 U/L (23-300)
--- NOTE | 2017-07-19 08:04 | ED PDOC ---
Physical Exam Vital Signs Reviewed: Yes Vital Signs Temp Pulse Resp BP Pulse Ox 07/19/17 13:25 98 F 67 20 119/72 99 07/19/17 11:49 98 F 75 18 119/72 07/19/17 10:06 98 F 75 19 119/72 99 07/19/17 07:14 98.5 F 98 H 18 149/85 100 Appearance: Positive for: Well-Appearing, Non-Toxic, Comfortable Pain Distress: None Mental Status: Positive for: Alert and Oriented X 3 Medical Decision Making ED Course and Treatment: 07/19/17 07:05 Case signed out to me, by Dr. Sumner. A 62 year old male presents with lower abdominal pain. Pending CT abdomen, reassessment and final disposition. 900 Dr Hector saw the pt in the ED and will admit. 1500 Dr Mila baldwin the pt in the ED [address] Maciel who reviewed the CT. He rec starting heparin at this time. Dr Kulkarni at bedside evaluating the pt at this time. - Lab Interpretations Lab Results: 07/19/17 05:43 07/19/17 05:43 Lab Results 07/19/17 09:03: Urine Color Yellow, Urine Appearance Clear, Urine pH 7.0, Ur Specific Perrin 1.010, Urine Protein Negative, Urine Glucose (UA) Negative, Urine Ketones 15 H, Urine Blood Negative, Urine Nitrate Negative, Urine Bilirubin Negative, Urine Urobilinogen 0.2, Ur Leukocyte Esterase Negative 07/19/17 08:35: pO2 81 H, VBG pH 7.54 H, VBG pCO2 23.0 L, VBG HCO3 19.7 L, VBG Total CO2 20.4 L, VBG O2 Sat (Calc) 98.9 H, VBG Base Excess -1.1 L, VBG Potassium 3.6, Glucose 114 H, Lactate 2.0, FiO2 21.0, Sodium 141.0, Chloride 109.0 H, Venous Blood Potassium 3.6 07/19/17 05:43: WBC 17.6 H D, RBC 5.82, Hgb 17.6, Hct 50.2, MCV 86.3, MCH 30.2, MCHC 35.1, RDW 13.9, Plt Count 338, MPV 9.6 07/19/17 05:43: Sodium 144, Potassium 3.9, Chloride 105, Carbon Dioxide 28, Anion Gap 15, BUN 9, Creatinine 0.7 L, Est GFR ( Amer) > 60, Est GFR (Non -Af Amer) > 60, Random Glucose 141 H, Calcium 9.6, Total Bilirubin 0.7, AST 26, ALT 26, Alkaline Phosphatase 94, Total Protein 7.5, Albumin 4.2, Globulin 3.3, Albumin/Globulin Ratio 1.3, Lipase 106 I have reviewed the lab results: Yes - RAD Interpretation Radiology Orders: 07/19/17 08:15 ANGIO ABDOMEN & PELVIS W/CONT [CT] Stat - Medication Orders Current Medication Orders: Aspirin (Ecotrin) 81 mg PO DAILY [facility] Last Admin: 07/19/17 13:18 Dose: Not Given Non-Admin Reason: NPO Clopidogrel Bisulfate (Plavix) 75 mg PO DAILY [facility] Last Admin: 07/19/17 13:18 Dose: Not Given Non-Admin Reason: NPO Hydromorphone HCl (Dilaudid) 1 mg IVP Q4H PRN PRN Reason: Pain, severe (8-10) Lactated Ringer's (Lactated Ringer's) 1,000 mls @ 150 mls/hr IV .Q6H40M [facility] Last Admin: 07/19/17 17:00 Dose: 150 mls/hr eMAR Start Stop Document 07/19/17 17:00 GMI (Rec: 07/19/17 17:03 [id number] Intravenous Solution Start Date 07/19/17 Start Time 17:03 Heparin Sodium/Sodium Chloride (Heparin 33248 Units/250ml 1/2 Normal Saline) 25 ,000 units in 250 mls @ 12.737 mls/hr IV .[id number] PRN; Protocol; 18 UNITS/KG/HR PRN Reason: ADJUST RATE PER PROTOCOL Discontinued Medications Heparin Sodium (Porcine) (Heparin) 5,000 units IV ONCE ONE PRN Reason: Protocol Stop: 07/19/17 17:16 Hydromorphone HCl (Dilaudid) 1 mg IVP STAT STA Stop: 07/19/17 08:16 Last Admin: 07/19/17 08:26 Dose: 1 mg MAR Pain Assessment Document 07/19/17 08:26 GMI (Rec: 07/19/17 08:29 [id number] Pain Reassessment Is this a pain reassessment? Yes Sleep Is patient sleeping during reassessment? No Presence of Pain Presence of Pain Yes Pain Scale Used Pain Scale Used Numeric Location Pain Location Body Site Abdomen Description Description Constant Pain Behavior Facial Grimacing Alleviating Factors/Management Position Change Techniques Alleviating Factors Medication IVP Administration Document 07/19/17 08:26 GMI (Rec: 07/19/17 08:29 GMI [id number]) Charges for Administration # of IVP Administrations 1 Re-Assess: [facility] Pain Assessment Document 07/19/17 09:26 GMI (Rec: 07/19/17 15:25 GMI [id number]) Pain Reassessment Is this a pain reassessment? Yes Sleep Is patient sleeping during reassessment? No Presence of Pain Presence of Pain No Hydromorphone HCl (Dilaudid) 1 mg IVP STAT STA Stop: 07/19/17 12:49 Last Admin: 07/19/17 13:20 Dose: 1 mg [facility] Pain Assessment Document 07/19/17 13:20 GMI (Rec: 07/19/17 13:21 GMI [id number]) Pain Reassessment Is this a pain reassessment? Yes Sleep Is patient sleeping during reassessment? No Presence of Pain Presence of Pain Yes Pain Scale Used Pain Scale Used Numeric Location Pain Location Body Site Abdomen Description Description Constant Intensity of Pain at present 9 Pain Behavior Facial Grimacing Alleviating Factors/Management Position Change Techniques Alleviating Factors Medication IVP Administration Document 07/19/17 13:20 GMI (Rec: 07/19/17 13:21 GMI [id number]) Charges for Administration # of IVP Administrations 1 Re-Assess: [facility] Pain Assessment Document 07/19/17 14:20 GMI (Rec: 07/19/17 15:25 GMI [id number]) Pain Reassessment Is this a pain reassessment? Yes Sleep Is patient sleeping during reassessment? No Presence of Pain Presence of Pain No Hydromorphone HCl (Dilaudid) 1 mg IVP STAT STA Stop: 07/19/17 15:19 Last Admin: 07/19/17 16:58 Dose: 1 mg [facility] Pain Assessment Document 07/19/17 16:58 GMI (Rec: 07/19/17 16:59 GMI [id number]) Pain Reassessment Is this a pain reassessment? Yes Sleep Is patient sleeping during reassessment? No Presence of Pain Presence of Pain Yes Pain Scale Used Pain Scale Used Numeric Location Pain Location Body Site Abdomen Description Description Sharp Intensity of Pain at present 9 Pain Behavior Facial Grimacing Aggravating Factors None Alleviating Factors/Management Medication Techniques Alleviating Factors Medication IVP Administration Document 07/19/17 16:58 GMI (Rec: 07/19/17 16:59 GMI [id number]) Charges for Administration # of IVP Administrations 1 Sodium Chloride (Sodium Chloride 0.9%) 1,000 mls @ 999 mls/hr IV .Q1H1M STA Stop: 07/19/17 06:27 Last Admin: 07/19/17 05:49 Dose: 999 mls/hr eMAR Start Stop Document 07/19/17 05:49 AD (Rec: 07/19/17 05:49 AD [id number]) Intravenous Solution Start Date 07/19/17 Start Time 05:49 Dextrose/Sodium Chloride (Dextrose 5%/0.45% Ns 1000 Ml) 1,000 mls @ 100 mls/hr IV .Q10H [facility] Last Admin: 07/19/17 15:26 Dose: 100 mls/hr eMAR Start Stop Document 07/19/17 15:26 GMI (Rec: 07/19/17 15:29 GMI [id number]) Intravenous Solution Start Date 07/19/17 Start Time 15:29 Piperacillin Sod/Tazobactam Sod (Zosyn 3.375 In Ns 100ml) 100 mls @ 200 mls/hr IVPB STAT STA PRN Reason: Protocol Stop: 07/19/17 16:01 Last Admin: 07/19/17 16:18 Dose: 200 mls/hr eMAR Start Stop Document 07/19/17 16:18 GMI (Rec: 07/19/17 16:21 GMI [id number]) Intravenous Solution Start Date 07/19/17 Start Time 16:21 Ketorolac Tromethamine (Toradol) 30 mg IVP ONCE ONE Stop: 07/19/17 05:28 Last Admin: 07/19/17 05:49 Dose: 30 mg MAR Pain Assessment Document 07/19/17 05:49 AD (Rec: 07/19/17 05:50 AD [id number]) Pain Reassessment Is this a pain reassessment? No Presence of Pain Presence of Pain Yes Pain Scale Used Pain Scale Used Numeric Location Pain Location Body Site Abdomen Description Intensity of Pain at present 10 IVP Administration Document 07/19/17 05:49 AD (Rec: 07/19/17 05:50 AD [id number]) Charges for Administration # of IVP Administrations 1 Re-Assess: [facility] Pain Assessment Document 07/19/17 06:49 GMI (Rec: 07/19/17 08:25 GMI [id number]) Pain Reassessment Is this a pain reassessment? Yes Sleep Is patient sleeping during reassessment? No Presence of Pain Presence of Pain Yes Morphine Sulfate (Morphine) 4 mg IVP STAT STA Stop: 07/19/17 06:26 Last Admin: 07/19/17 06:37 Dose: 4 mg [facility] Pain Assessment Document 07/19/17 06:37 AD (Rec: 07/19/17 06:37 AD [id number]) Pain Reassessment Is this a pain reassessment? No Presence of Pain Presence of Pain Yes Pain Scale Used Pain Scale Used Numeric Description Intensity of Pain at present 10 Pain Behavior Guarding Facial Grimacing IVP Administration Document 07/19/17 06:37 AD (Rec: 07/19/17 06:37 AD [id number]) Charges for Administration # of IVP Administrations 1 Re-Assess: [facility] Pain Assessment Document 07/19/17 07:37 GMI (Rec: 07/19/17 08:25 GMI [id number]) Pain Reassessment Is this a pain reassessment? Yes Sleep Is patient sleeping during reassessment? No Presence of Pain Presence of Pain Yes Pain Scale Used Pain Scale Used Numeric Description Description Constant Intensity of Pain at present 10 Pain Behavior Facial Grimacing - Scribe Statement The provider has reviewed the documentation as recorded by the Jhonatan Ziegler Provider Scribe Attestation: All medical record entries made by the Scribe were at my direction and personally dictated by me. I have reviewed the chart and agree that the record accurately reflects my personal performance of the history, physical exam, medical decision making, and the department course for this patient. I have also personally directed, reviewed, and agree with the discharge instructions and disposition. Disposition/Present on Arrival - Present on Arrival Any Indicators Present on Arrival: No History of DVT/PE: No History of Uncontrolled Diabetes: No Urinary Catheter: No History of Decub. Ulcer: No History Surgical Site Infection Following: None - Disposition Have Diagnosis and Disposition been Completed?: Yes Diagnosis: Mesenteric ischemia Disposition: HOSPITALIZED Disposition Time: 09:08 Condition: STABLE
[2017-07-19] MEDS ORDERED: HYDROmorphone 1 mg/ml ISec IVP STA ×3 (08:15→15:18)
[2017-07-19 08:47] LABS: VENOUS BLOOD GAS BASE EXCESS -1.1 mmol/L (0.0-2.0); VENOUS BLOOD GAS PO2 81 mm/Hg (30-55); VENOUS BLOOD PH 7.54 (7.32-7.43)
[2017-07-19 09:22] LABS: URINE BILIRUBIN NEGATIVE (NEGATIVE); URINE BLOOD NEGATIVE (NEGATIVE); URINE GLUCOSE (UA) NEGATIVE (NEGATIVE); URINE LEUKOCYTE ESTERASE NEGATIVE Leu/uL (NEGATIVE); URINE NITRATE NEGATIVE (NEGATIVE); URINE PROTEIN NEGATIVE mg/dL (<30 mg/dL); URINE UROBILINOGEN 0.2 E.U./dL (<1 E.U./dL)
[2017-07-19 09:23] LABS: URINE APPEARANCE CLEAR (CLEAR); URINE COLOR YELLOW (YELLOW)
[2017-07-19] MEDS ORDERED: Iohexol 240 (50 ml) ONE (10:46)
[2017-07-19] MEDS ORDERED: Dextrose 5%/0.45% NS 1,000 ML IV SCH (11:30)
[2017-07-19 15:32] LABS: VENOUS BLOOD GAS BASE EXCESS 5.6 mmol/L (0.0-2.0); VENOUS BLOOD GAS PO2 21 mm/Hg (30-55); VENOUS BLOOD PH 7.36 (7.32-7.43)
[2017-07-19] MEDS ORDERED: Piperacillin/Tazobact 3.375 gm 100 ML IVPB STA (15:32)
--- NOTE | 2017-07-19 15:33 | CARD ---
APPROVED REPORT EKG Measurement Heart [id number] <Conclusion> Sinus rhythm with premature atrial complexes with aberrant conduction Possible Left atrial enlargement Rightward axis Borderline ECG
[2017-07-19 16:56] LABS: INR 1.13 (0.93-1.08); PARTIAL THROMBOPLASTIN TIME 33.9 Seconds (25.1-36.5); PROTHROMBIN TIME 12.3 SECONDS (9.4-12.5)
[2017-07-19] MEDS: Lactated Ringer's 1,000 ML IV SCH (17:00)
--- NOTE | 2017-07-19 17:14 | CT ---
EXAM: CT Angiography Abdomen and Pelvis With Intravenous Contrast EXAM DATE/TIME: 07/19/2017 8:15 AM CLINICAL HISTORY: 62 years old, male; Pain; Abdominal pain; Localized; Lower; Additional info: R/O mesenteric ischemia. Give po contrast as well TECHNIQUE: Axial computed tomographic angiography images of the abdomen and pelvis with intravenous contrast. All CT scans at this facility use one or more dose reduction techniques, viz.: automated exposure control; ma/kV adjustment per patient size (including targeted exams where dose is matched to indication; i.e. head); or iterative reconstruction technique. MIP reconstructed images were created and reviewed. Coronal and sagittal reformatted images were created and reviewed. CONTRAST: 100 mL of omni administered intravenously. COMPARISON: CT - ABD PELVIS IV CONTRAST ONLY 2017-07-17 08:13 FINDINGS: Lower thorax: No acute findings. VASCULATURE: Aorta: No acute findings. No abdominal aortic aneurysm. No dissection. Celiac trunk and mesenteric arteries: Small plaque in proximal celiac artery, less than 50% stenosis. 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 Rest of superior mesenteric artery of normal caliber, reconstituted via a dominant collateral vessel from common hepatic artery with additional contribution from dorsal pancreatic artery and gastroepiploic arteries. Renal arteries: No acute findings. No occlusion or significant stenosis. Iliac arteries: No acute findings. No occlusion or significant stenosis. ABDOMEN: Liver: Unremarkable. No mass. Gallbladder and bile ducts: Unremarkable. No calcified stones. No ductal dilation. Pancreas: Unremarkable. No ductal dilation. No mass. Spleen: Unremarkable. No splenomegaly. Adrenals: Unremarkable. No mass. Kidneys and ureters: Bilateral renal cysts. No hydronephrosis. Stomach and bowel: Segment of 6 cm of transverse colon with prominent wall. Mild stranding of surrounding omental fat. Few scattered colonic diverticuli, no acute diverticulitis. No obstruction. Appendix: Normal. PELVIS: Bladder: Unremarkable. No mass. Reproductive: Unremarkable as visualized. ABDOMEN and PELVIS: Intraperitoneal space: Bones/joints: No acute fracture. Soft tissues: Unremarkable. Lymph nodes: Unremarkable. No enlarged lymph nodes. IMPRESSION: 1. 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 2. Prominent appearing wall to short segment of transverse colon, with SMA abnormality, concerning for ischemia.
--- NOTE | 2017-07-19 17:39 | RAD ---
HISTORY: Preoperative assessment. COMPARISON: Comparison chest 03/06/2017. FINDINGS: LUNGS: There appears to be some minimal bibasilar atelectasis or scarring left greater than right PLEURA: No significant pleural effusion identified, no pneumothorax apparent. CARDIOVASCULAR: Normal. OSSEOUS STRUCTURES: No significant abnormalities. VISUALIZED UPPER ABDOMEN: Normal. OTHER FINDINGS: None. IMPRESSION: Minimal bibasilar atelectasis or scarring left greater than right
--- NOTE | 2017-07-19 17:43 | CP.PCM.CON ---
History of Present Illness - History of Present Illness History of Present Illness: General Surgery Consult Note for Dr. Kulkarni Reason for consult: suspected mesenteric ischemia 62 M with PMH of severe PAD, COPD presents to [facility] [place] [facility] ED for complaint of abdominal pain. Surgery consulted for suspected mesenteric ischemia. Patient states that he has been having this pain intermittently for 3 weeks. Patient states that it has been getting progressively worse over this time period. Patient was admitted 07/16 for the pain. His hospital stay was 24 hours and was discharged home. The pain returned while he was at home. Today, it became unbearable so he decided to come back. He rates the pain as severe intensity. He describes the pain as constant and sharp located in lower abdomen bilaterally. He states that the pain is worse with eating and begans about 1 hour after he consumes any food. Sitting upright at a 30 degree angle alleviates the pain sometimes. Admits constipation. Denies any fever/chills, chest pain, sob, palpitations, nausea/vomiting, diarrhea, hematochezia, melena. PMH: PAD, COPD Meds: As per EMR Allergy: NKDA PSH: peripheral angiogram with arthrectomy FH: unknown Social: smokes 1 pack/day for over 30 years, drinks 2-4 times per month, denies illicit drug use Review of Systems - Review of Systems All systems: reviewed and no additional remarkable complaints except (as per HPI ) Past Patient History - Infectious Disease Hx of Infectious Diseases: None - Tetanus Immunizations Tetanus Immunization: Unknown - Past Medical History & Family History Past Medical History?: Yes - Past Social History Smoking Status: Heavy Smoker > 10 Cigarettes Daily - CARDIAC Hx Pacemaker: No - PULMONARY Hx Respiratory Disorders: No Hx Chronic Obstructive Pulmonary Disease (COPD): Yes - NEUROLOGICAL Hx Neurological Disorder: No - HEENT Hx HEENT Problems: No - RENAL Hx Chronic Kidney Disease: No - ENDOCRINE/METABOLIC Hx Endocrine Disorders: No - HEMATOLOGICAL/ONCOLOGICAL Hx Blood Disorders: Yes Other/Comment: polycythemia vera - INTEGUMENTARY Hx Dermatological Problems: No - MUSCULOSKELETAL/RHEUMATOLOGICAL Hx Falls: No - GASTROINTESTINAL Hx Gastrointestinal Disorders: No - GENITOURINARY/GYNECOLOGICAL Hx Genitourinary Disorders: No - PSYCHIATRIC Hx Emotional Abuse: No Hx Physical Abuse: No Hx Substance Use: No - SURGICAL HISTORY Other/Comment: CARPAL TUNNEL - ANESTHESIA Hx Anesthesia Reactions: No Hx Malignant Hyperthermia: No Meds Allergies/Adverse Reactions: Allergies Allergy/AdvReac Type Severity Reaction Status Date / Time No Known Allergies Allergy Verified 07/19/17 05:21 - Medications Medications: Current Medications Aspirin (Ecotrin) 81 mg PO DAILY [facility] Last Admin: 07/19/17 13:18 Dose: Not Given Clopidogrel Bisulfate (Plavix) 75 mg PO DAILY [facility] Last Admin: 07/19/17 13:18 Dose: Not Given Hydromorphone HCl (Dilaudid) 1 mg IVP Q4H PRN PRN Reason: Pain, severe (8-10) Lactated Ringer's (Lactated Ringer's) 1,000 mls @ 150 mls/hr IV .Q6H40M [facility] Last Admin: 07/19/17 17:00 Dose: 150 mls/hr Heparin Sodium/Sodium Chloride (Heparin 13387 Units/250ml 1/2 Normal Saline) 25 ,000 units in 250 mls @ 12.737 mls/hr IV .[id number] PRN; Protocol; 18 UNITS/KG/HR PRN Reason: ADJUST RATE PER PROTOCOL Physical Exam - Constitutional Appears: In Acute Distress - Head Exam Head Exam: ATRAUMATIC, NORMOCEPHALIC - Eye Exam Eye Exam: EOMI, Normal appearance Pupil Exam: PERRL - ENT Exam ENT Exam: Mucous Membranes Dry - Respiratory Exam Respiratory Exam: NORMAL BREATHING PATTERN - Cardiovascular Exam Cardiovascular Exam: REGULAR RHYTHM - GI/Abdominal Exam GI & Abdominal Exam: Guarding, Normal Bowel Sounds, Rebound, Soft, Tenderness ( diffuse). absent: Distended, Firm, Rigid - Extremities Exam Extremities exam: Negative for: calf tenderness - Neurological Exam Neurological exam: Alert, CN II-XII Intact, Oriented x3 - Psychiatric Exam Psychiatric exam: Normal Affect, Normal Mood - Skin Skin Exam: Dry, Warm Results - Vital Signs Recent Vital Signs: Last Vital Signs Temp 98 F 07/19/17 13:25 Pulse 67 07/19/17 13:25 Resp 20 07/19/17 13:25 BP 119/72 07/19/17 13:25 Pulse Ox 99 07/19/17 13:25 - Labs Result Diagrams: 07/19/17 05:43 07/19/17 05:43 Labs: Laboratory Results - last 24 hr 07/19/17 07/19/17 07/19/17 15:20 16:30 16:30 PT 12.3 INR 1.13 H APTT 33.9 pO2 21 L VBG pH 7.36 VBG pCO2 58.0 VBG HCO3 32.8 H VBG Total CO2 34.6 H VBG O2 Sat (Calc) 38.6 L VBG Base Excess 5.6 H VBG Potassium 4.9 Sodium 141.0 Chloride 106.0 Glucose 83 Lactate 0.9 FiO2 21.0 Venous Blood Potassium 4.9 Blood Type O NEGATIVE Antibody Screen Negative BBK History Checked Patient has bt Assessment & Plan - Assessment and Plan (Free Text) Plan: 62 M with severe abdominal pain. 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 Shad Kaye PGY1
[2017-07-19] MEDS: Heparin25000 units/250ml 1/2NS 25,000 UNITS/250 ML BAG IV PRN (17:46)
[2017-07-19] MEDS ORDERED: cefTRIAXone 1,000 MG in Sodium Chloride 0.9% 50 ML IVPB SCH (19:00)
--- NOTE | 2017-07-19 19:43 | CP.PCM.CON ---
History of Present Illness - History of Present Illness History of Present Illness: Vascular Surgery Consult for Dr. Salinas Reason for consult: SMA thrombosis/occlusion 62 M with PMH of severe PAD, COPD presents to [facility] ED for complaint of abdominal pain. Surgery consulted for suspected mesenteric ischemia. Patient states that he has been having this pain intermittently for 3 weeks. Patient states that it has been getting progressively worse over this time period. Patient was admitted 07/16 for the pain. His hospital stay was 24 hours and was discharged home. The pain returned while he was at home. Today, it became unbearable so he decided to come back. He rates the pain as severe intensity. He describes the pain as constant and sharp located in lower abdomen bilaterally. He states that the pain is worse with eating and begans about 1 hour after he consumes any food. Sitting upright at a 30 degree angle alleviates the pain sometimes. Admits constipation. Denies any fever/chills, chest pain, sob, palpitations, nausea/vomiting, diarrhea, hematochezia, melena. PMH: PAD, COPD Meds: As per EMR Allergy: NKDA PSH: peripheral angiogram with arthrectomy FH: unknown Social: smokes 1 pack/day for over 30 years, drinks 2-4 times per month, denies illicit drug use Review of Systems - Review of Systems All systems: reviewed and no additional remarkable complaints except (as per HPI ) Past Patient History - Infectious Disease Hx of Infectious Diseases: None - Tetanus Immunizations Tetanus Immunization: Unknown - Past Medical History & Family History Past Medical History?: Yes - Past Social History Smoking Status: Heavy Smoker > 10 Cigarettes Daily - CARDIAC Hx Pacemaker: No - PULMONARY Hx Respiratory Disorders: No Hx Chronic Obstructive Pulmonary Disease (COPD): Yes - NEUROLOGICAL Hx Neurological Disorder: No - HEENT Hx HEENT Problems: No - RENAL Hx Chronic Kidney Disease: No - ENDOCRINE/METABOLIC Hx Endocrine Disorders: No - HEMATOLOGICAL/ONCOLOGICAL Hx Blood Disorders: Yes Other/Comment: polycythemia vera - INTEGUMENTARY Hx Dermatological Problems: No - MUSCULOSKELETAL/RHEUMATOLOGICAL Hx Falls: No - GASTROINTESTINAL Hx Gastrointestinal Disorders: No - GENITOURINARY/GYNECOLOGICAL Hx Genitourinary Disorders: No - PSYCHIATRIC Hx Emotional Abuse: No Hx Physical Abuse: No Hx Substance Use: No - SURGICAL HISTORY Other/Comment: CARPAL TUNNEL - ANESTHESIA Hx Anesthesia Reactions: No Hx Malignant Hyperthermia: No Meds Allergies/Adverse Reactions: Allergies Allergy/AdvReac Type Severity Reaction Status Date / Time No Known Allergies Allergy Verified 07/19/17 05:21 - Medications Medications: Current Medications Aspirin (Ecotrin) 81 mg PO DAILY [facility] Last Admin: 07/19/17 13:18 Dose: Not Given Clopidogrel Bisulfate (Plavix) 75 mg PO DAILY [facility] Last Admin: 07/19/17 13:18 Dose: Not Given Hydromorphone HCl (Dilaudid) 1 mg IVP Q4H PRN PRN Reason: Pain, severe (8-10) Lactated Ringer's (Lactated Ringer's) 1,000 mls @ 150 mls/hr IV .Q6H40M [facility] Last Admin: 07/19/17 17:00 Dose: 150 mls/hr Heparin Sodium/Sodium Chloride (Heparin 87608 Units/250ml 1/2 Normal Saline) 25 ,000 units in 250 mls @ 12.737 mls/hr IV .[id number] PRN; Protocol; 18 UNITS/KG/HR PRN Reason: ADJUST RATE PER PROTOCOL Last Admin: 07/19/17 17:46 Dose: 18 units/kg/hr, 12.737 mls/hr Metronidazole (Flagyl) 500 mg in 100 mls @ 100 mls/hr IVPB Q8 [facility] PRN Reason: Protocol Ceftriaxone Sodium 1,000 mg/ (Sodium Chloride) 100 mls @ 100 mls/hr IVPB Q24H [facility] PRN Reason: Protocol Physical Exam - Constitutional Appears: In Acute Distress - Head Exam Head Exam: ATRAUMATIC, NORMOCEPHALIC - Eye Exam Eye Exam: EOMI, Normal appearance Pupil Exam: PERRL - ENT Exam ENT Exam: Mucous Membranes Dry - Respiratory Exam Respiratory Exam: NORMAL BREATHING PATTERN - Cardiovascular Exam Cardiovascular Exam: REGULAR RHYTHM - GI/Abdominal Exam GI & Abdominal Exam: Guarding, Normal Bowel Sounds, Rebound, Soft, Tenderness ( diffuse). absent: Distended, Firm, Rigid - Extremities Exam Additional comments: RLE: non-palpable DP and PT pulse, warm, no edema or erythema, neuro intact - Neurological Exam Neurological exam: Alert, CN II-XII Intact, Oriented x3 - Psychiatric Exam Psychiatric exam: Normal Affect, Normal Mood - Skin Skin Exam: Dry, Intact, Normal Color, Warm Results - Vital Signs Recent Vital Signs: Last Vital Signs Temp 98 F 07/19/17 18:34 Pulse 75 07/19/17 18:34 Resp 20 07/19/17 18:34 BP 123/72 07/19/17 18:34 Pulse Ox 99 07/19/17 18:34 - Labs Result Diagrams: 07/19/17 05:43 07/19/17 05:43 Labs: Laboratory Results - last 24 hr 07/19/17 07/19/17 07/19/17 15:20 16:30 16:30 PT 12.3 INR 1.13 H APTT 33.9 pO2 21 L VBG pH 7.36 VBG pCO2 58.0 VBG HCO3 32.8 H VBG Total CO2 34.6 H VBG O2 Sat (Calc) 38.6 L VBG Base Excess 5.6 H VBG Potassium 4.9 Sodium 141.0 Chloride 106.0 Glucose 83 Lactate 0.9 FiO2 21.0 Venous Blood Potassium 4.9 Blood Type O NEGATIVE Antibody Screen Negative BBK History Checked Patient has bt Assessment & Plan - Assessment and Plan (Free Text) Plan: 62 M with severe abdominal pain. 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 Brad Kaye PGY1
[2017-07-19] MEDS: metroNIDAZOLE IV 500 mg/100 ml 500 MG/100 ML BAG IVPB SCH (21:13)
[2017-07-19] MEDS: HYDROmorphone 1 mg/ml ISec IVP PRN (21:15)
--- NOTE | 2017-07-20 00:36 | CON ---
DATE: REASON FOR CONSULTATION: Abdominal pain. HISTORY OF PRESENT ILLNESS: This 62-year-old patient, with past medical history of peripheral vascular disease, COPD, active smoker, was recently discharged from the hospital two days ago, presented to the Emergency Room with acute onset of abdominal pain that started last night. The pain progressively got worse, came to the ER. No vomiting, no bleeding per rectum. Constant dull pain with periods of exaggerations. The patient mentioned to me that he was doing okay from the time of discharge except for some discomfort, but this is an acute presentation. PAST MEDICAL HISTORY: The patient's other past medical history includes polycythemia. The patient is being followed by Dr. Ortega. Peripheral vascular disease, had angioplasty, thrombolysis in the past. The patient had some change in bowel habits for the past 2-3 week's time and he was due to have followup in the office as an outpatient colonoscopy. FAMILY HISTORY: Noncontributory. SOCIAL HISTORY: Denies alcohol. Positive for the smoking. REVIEW OF SYSTEMS: Positive as above. No chest pain. No palpitations. Abdominal pain as above. No dysuria. History of some difficult with bowel movement, change of bowel habits more towards difficulty with completely emptying his bowels. ALLERGIES: NO KNOWN DRUG ALLERGIES. PHYSICAL EXAMINATION: GENERAL: The patient is lying on the bed. The patient is complaining of some abdominal pain. VITAL SIGNS: Temperature is 98, blood pressure is 119/72, respirations are 20, and O2 saturation is 99% on room air. HEENT: Atraumatic and anicteric. NECK: Supple. HEART: S1 and S2 heard. LUNGS: Bilateral air entry present. ABDOMEN: Diffuse tenderness present more in the lower abdomen. EXT nocynosis,no edema LABORATORY DATA: Hemoglobin 17.5, hematocrit 50.2, WBC 17.6, and platelets 338. BUN 9 and creatinine 0.7. Lipase normal at this time. IMPRESSION: A 62-year-old patient with peripheral vascular disease, recently discharged from the hospital, came back with worsening of the abdominal pain. He said he has been having these symptoms on and off for the past few weeks and at the time of discharge, he was feeling better and he was doing okay. The abdominal pain started in the spring intern today. The patient, since admission, feels slightly better, but still has this pain. The differential diagnosis should include is mesenteric ischemia. RECOMMENDATIONS: 1. We would recommend CT angiogram. CT angiogram has been ordered, awaiting for the results. 2. Increase IV hydration. 3. Empiric antibiotic coverage. Surgical and Vascular consult. I have discussed his case with the ER physician and also with primary physician, Dr. Venancio Hector. Surgical consult has been called. I discussed with the surgical specialist. Message is also left to the interventional radiologist. Thank you very much. Kane Zaragoza MD MTDAllyson
[2017-07-20] MEDS: HYDROmorphone 1 mg/ml ISec IVP PRN ×5 (01:00→22:32)
[2017-07-20] MEDS: Lactated Ringer's 1,000 ML IV SCH ×2 (04:42→14:43)
[2017-07-20] MEDS: metroNIDAZOLE IV 500 mg/100 ml 500 MG/100 ML BAG IVPB SCH ×3 (06:32→22:22)
[2017-07-20 08:15] LABS: BASO # 0.03 K/mm3 (0.0-2.0); BASO % 0.2 % (0.0-3.0); EOS # 0.7 (0.0-0.7); GRAN # 7.97 (1.4-6.5); GRAN % 65.3 % (50.0-68.0); HEMOGLOBIN 15.5 g/dL (14.0-18.0); LYMPH # 2.5 (1.2-3.4); LYMPH % 20.5 % (22.0-35.0); MEAN CELL VOLUME 86.6 fl (80.0-105.0); MEAN CORPUSCULAR HEMOGLOBIN 29.6 pg (25.0-35.0); MEAN CORPUSCULAR HGB CONC 34.2 g/dl (31.0-37.0); MEAN PLATELET VOLUME 9.8 fl (7.0-11.0); RBC 5.23 10^6/uL (3.5-6.1); RED CELL DISTRIBUTION WIDTH 14.1 % (11.5-14.5); WHITE BLOOD COUNT 12.2 10^3/ul (4.5-11.0)
[2017-07-20 08:28] LABS: ALB/GLOB RATIO 1.2 (1.1-1.8); ALBUMIN 3.3 g/dL (3.0-4.8); ALT/SGPT 29 U/L (7-56); AMYLASE 51 U/L (35-125); AST/SGOT 17 U/L (17-59); BLOOD UREA NITROGEN 7 mg/dL (7-21); CALCIUM 8.6 mg/dL (8.4-10.5); GFR AFRICAN-AMERICAN > 60; GFR NON-AFRICAN AMERICAN > 60; LIPASE 98 U/L (23-300)
--- NOTE | 2017-07-20 08:48 | CP.PCM.PN ---
Subjective - Date & Time of Evaluation Date of Evaluation: 07/20/17 Time of Evaluation: 06:45 - Subjective Subjective: Vascular Surgery- Dr. Salinas Patient seen and examined at bedside. No acute events overnight. Pt currently on heparin drip. NPO, states he has an appetite. Denies nausea, vomiting, fevers , chills, chest pain, shortness of breath Objective - Vital Signs/Intake and Output Vital Signs (last 24 hours): Temp Pulse Resp BP Pulse Ox 98.5 F 70 20 123/81 97 07/20/17 07:30 07/20/17 07:30 07/20/17 07:30 07/20/17 07:30 07/20/17 07:30 Intake and Output: 07/20/17 07/20/17 06:59 18:59 Intake Total 2240 Balance 2240 - Medications Medications: Current Medications Aspirin (Ecotrin) 81 mg PO DAILY [facility] Last Admin: 07/19/17 13:18 Dose: Not Given Clopidogrel Bisulfate (Plavix) 75 mg PO DAILY [facility] Last Admin: 07/19/17 13:18 Dose: Not Given Hydromorphone HCl (Dilaudid) 1 mg IVP Q4H PRN PRN Reason: Pain, severe (8-10) Last Admin: 07/20/17 07:02 Dose: 1 mg Lactated Ringer's (Lactated Ringer's) 1,000 mls @ 150 mls/hr IV .Q6H40M [facility] Last Admin: 07/20/17 04:42 Dose: 150 mls/hr Heparin Sodium/Sodium Chloride (Heparin 68336 Units/250ml 1/2 Normal Saline) 25 ,000 units in 250 mls @ 12.737 mls/hr IV .[id number] PRN; Protocol; 18 UNITS/KG/HR PRN Reason: ADJUST RATE PER PROTOCOL Last Titration: 07/20/17 02:03 Dose: 15.12 units/kg/hr, 10.7 mls/hr Metronidazole (Flagyl) 500 mg in 100 mls @ 100 mls/hr IVPB Q8 [facility] PRN Reason: Protocol Last Admin: 07/20/17 06:32 Dose: 100 mls/hr Ceftriaxone Sodium 1,000 mg/ (Sodium Chloride) 100 mls @ 100 mls/hr IVPB Q24H [facility] PRN Reason: Protocol Last Admin: 07/19/17 19:50 Dose: 100 mls/hr Pantoprazole Sodium (Protonix Inj) 40 mg IVP DAILY [facility] - Labs Labs: 07/20/17 07:30 07/20/17 07:30 PT 12.3 SECONDS (9.4-12.5) 07/19/17 16:30 INR 1.13 (0.93-1.08) H 07/19/17 16:30 APTT 83.9 Seconds (25.1-36.5) H 07/20/17 07:30 - Constitutional Appears: Non-toxic, No Acute Distress - Head Exam Head Exam: ATRAUMATIC - Eye Exam Eye Exam: EOMI - ENT Exam ENT Exam: Mucous Membranes Moist - Respiratory Exam Respiratory Exam: NORMAL BREATHING PATTERN. absent: Accessory Muscle Use, Respiratory Distress - Cardiovascular Exam Cardiovascular Exam: +S1, +S2. absent: Bradycardia, Tachycardia - GI/Abdominal Exam GI & Abdominal Exam: Guarding, Soft, Tenderness. absent: Distended, Firm, Rigid Additional comments: tender to palpation specifically in RLQ voluntary gaurding on palpation. negative involuntary guarding - Extremities Exam Extremities Exam: absent: Calf Tenderness - Back Exam Back Exam: absent: CVA tenderness (L), CVA tenderness (R) - Neurological Exam Neurological Exam: Alert, Awake, Oriented x3 - Psychiatric Exam Psychiatric exam: Normal Affect - Skin Skin Exam: Intact, Warm Assessment and Plan - Assessment and Plan (Free Text) Assessment: 62 M with severe abdominal pain. 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 Salinas surgical attending PGY1
--- NOTE | 2017-07-20 12:42 | PN ---
DATE: 07/20/2017 SUBJECTIVE: The patient was seen this Thursday New in room 564, bed 2. He is quite comfortable, awake, alert, and clear. Denies any abdominal pain or symptoms. I spoke with him at length explaining the results of the CTA showing a 1-cm occlusive area in the superior mesenteric artery. I explained how collaterals seemed to have saved him from intraabdominal catastrophe and he recalls hearing similar story about collateral circulation regarding his legs. I also had a chance to see his old records. Since he is a new patient to me, I only met him on one occasion prior to this hospital stay. I also explained my findings of reviewing his old labs that in 2014, JAK2 test was done for gene mutation of polycythemia, which was negative. It was repeated during his hospital stay of only a week ago for presumed pancreatitis, but now all things are pointing towards ischemic bowel disease as he is a vasculopath with severe peripheral vascular disease. He continues to smoke. I spoke with him again about the smoking. At this point in time, our best option for the moment is to continue anticoagulants and IV fluids, encouraged the patient to discontinue smoking while we will wait for final opinion from Interventional Radiology and Vascular. I explained to the patient that although he might be thinking vascular intervention as the best option, noninvasive interventional radiology may be considered or smoking cessation and anticoagulation. We will discuss with all consultants involved. I also talked with Dr. Kulkarni and Dr. Zaragoza from my perspective as well as Dr. Kulkarni's we will increase his diet today to clears and go from there. Venancio Hector MD AUGUST
[2017-07-20] MEDS: Heparin25000 units/250ml 1/2NS 25,000 UNITS/250 ML BAG IV PRN (14:44)
--- NOTE | 2017-07-20 19:34 | CON ---
DATE: HISTORY OF PRESENT ILLNESS: David Jordan is seen in the Emergency Room as an emergency consult and then on the floor today. He is a 62-year-old who is a heavy smoker claims one pack a day, it is probably more and very little alcohol. Has a intervention of the right groin with Dr. Justice Will. I think it is an arthrectomy without a stent. PAST MEDICAL HISTORY: Possible for polycythemia vera; however, this was genetically worked up with Dr. Ortega and I believe this is not the issue, I think the thrombocytosis related to his smoking chronically. In any case, he presented to the Emergency Room with 2 month history of abdominal pain, comes and goes, severe relenting not related to food, but that was questionable because he answers very evasively. Pain is severe mostly in right lower quadrant, but is diffuse throughout the abdomen. Pain relented with Dilaudid. Today on the floor, the abdomen soft and nontender, he has no pain, but he has not eaten. he denies chest pain or shortness of breath, PND, orthopnea. He was recently in the hospital last week was seen by GI, is scheduled for colonoscopy. He does take medicines at home. REVIEW OF SYSTEMS: Unremarkable. No nausea or vomiting. He had some diarrhea. No bright red blood per rectum or melena. No dysuria, frequency or urgency. Others are completely normal. PHYSICAL EXAMINATION: GENERAL: Remarkable for not cachectic, but thin, alert, awake, and oriented. HEENT: Negative. NECK: Supple. CHEST: Clear. HEART: Without murmur, no bruits that I can feel. ABDOMEN: Is now soft, recently having received Dilaudid. No guarding or rebound. CT angiogram is done because of abdominal pain. This portion of the abdominal findings report by Dr. Briana Durant. Reclusion of the 1 cm section of superior mesenteric with reconstitution. There is also a partial issue with the SMA seems to be stenotic. LABORATORY DATA: Laboratory workup remarkable for white count was 17 on admission, now 12. SMA-18 is normal. PTT is high, he is being treated with heparin, antibiotics, and fluids. I think the patient has chronic mesenteric ischemia and probably abdominal angina. We will discuss with Justice Will. I spoke to Dr. Salinas who is on consult. Venancio Kulkarni MD [facility] # [id number]
--- NOTE | 2017-07-20 21:24 | PN ---
DATE: 07/20/2017 SUBJECTIVE: This patient was seen and evaluated earlier. Feels much better now. Still has requiring some pain medication. PHYSICAL EXAMINATION VITAL SIGNS: Temperature 98.5, pulse 70, blood pressure 123/81, respiration is 20, and O2 saturation 97%. HEENT: Atraumatic. Anicteric. NECK: Supple. HEART: S1 and S2 heard. LUNGS: Bilateral air entry present. ABDOMEN: Soft. There was a tenderness present on deep palpation on the region of lower abdominal area and periumbilical area and more towards in the right side. There is no rebound or guarding at this present time. EXTREMITIES: No cyanosis, no clubbing. No edema. NEUROLOGIC: Alert, oriented, moves all extremities. LABORATORY DATA: WBC count has come down to 12.2, hemoglobin 15.5, hematocrit 45.3, and platelets 291. Chemistry is essentially unremarkable. Amylase and lipase levels are normal and the CT angiogram findings reviewed and I also discussed with Dr. Ruben Maciel yesterday, the Interventional Radiologist. IMPRESSION: This is a 62-year-old patient admitted with acute worsening of the abdominal pain since admitted yesterday. The patient has significant atherosclerotic changed disease in the CT angiogram, has a mesenteric artery narrowing with occlusion of the proximal 1 cm superior mesenteric artery and remaining vessels reconstitute via collaterals and prominent appearing short segment of wall thickening in the transverse colon area concerning an ischemia. There was also some involvement of the inferior mesenteric artery. At the present time, the patient has extensive collaterals supplying the bowel. RECOMMENDATIONS: 1. The patient is presently on IV heparin, we will continue that. 2. He is on aspirin, we will continue that. 3. Vascular surgical followup. 4. Continue the antibiotics. 5. We will keep the patient n.p.o. 6. The patient was strongly advised to stop smoking. The patient did have some significant peripheral vascular disease and angioplasty done in the past. Continue to close follow up. Thank you very much for allowing us to participate in the care of the patient. Kane Zaragoza MD AUGUST
[2017-07-21] MEDS: Lactated Ringer's 1,000 ML IV SCH ×3 (00:36→20:02)
[2017-07-21] MEDS: HYDROmorphone 1 mg/ml ISec IVP PRN (04:20)
[2017-07-21] MEDS: metroNIDAZOLE IV 500 mg/100 ml 500 MG/100 ML BAG IVPB SCH ×3 (06:24→22:16)
--- NOTE | 2017-07-21 09:00 | CP.PCM.PN ---
Subjective - Date & Time of Evaluation Date of Evaluation: 07/21/17 Time of Evaluation: 06:50 - Subjective Subjective: General Surgery - Dr. Kulkarni Patient seen and examined at bedside. No acute events reported overnight. Patient complains of abdominal discomfort at time of interview. Patient reports appropriate control of pain. Denies chest pain, shortness of breath, nausea, vomiting, fever, chills. Objective - Vital Signs/Intake and Output Vital Signs (last 24 hours): Temp Pulse Resp BP Pulse Ox 97.6 F 77 19 120/75 98 07/21/17 00:05 07/21/17 00:05 07/21/17 00:05 07/21/17 00:05 07/21/17 00:05 Intake and Output: 07/21/17 07/21/17 06:59 18:59 Intake Total 4113 Balance 4113 - Medications Medications: Current Medications Aspirin (Ecotrin) 81 mg PO DAILY [facility] Last Admin: 07/20/17 10:51 Dose: 81 mg Clopidogrel Bisulfate (Plavix) 75 mg PO DAILY [facility] Last Admin: 07/20/17 10:51 Dose: 75 mg Hydromorphone HCl (Dilaudid) 1 mg IVP Q4H PRN PRN Reason: Pain, severe (8-10) Last Admin: 07/21/17 04:20 Dose: 1 mg Lactated Ringer's (Lactated Ringer's) 1,000 mls @ 150 mls/hr IV .Q6H40M [facility] Last Admin: 07/21/17 00:36 Dose: 150 mls/hr Heparin Sodium/Sodium Chloride (Heparin 88335 Units/250ml 1/2 Normal Saline) 25 ,000 units in 250 mls @ 12.737 mls/hr IV .[id number] PRN; Protocol; 18 UNITS/KG/HR PRN Reason: ADJUST RATE PER PROTOCOL Last Admin: 07/20/17 14:44 Dose: 13.12 units/kg/hr, 9.284 mls/hr Metronidazole (Flagyl) 500 mg in 100 mls @ 100 mls/hr IVPB Q8 [facility] PRN Reason: Protocol Last Admin: 07/21/17 06:24 Dose: 100 mls/hr Ceftriaxone Sodium 1,000 mg/ (Sodium Chloride) 100 mls @ 100 mls/hr IVPB Q24H [facility] PRN Reason: Protocol Last Admin: 07/20/17 20:35 Dose: 100 mls/hr Pantoprazole Sodium (Protonix Inj) 40 mg IVP DAILY [facility] Last Admin: 07/20/17 10:51 Dose: 40 mg - Labs Labs: 07/20/17 07:30 07/20/17 07:30 PT 12.3 SECONDS (9.4-12.5) 07/19/17 16:30 INR 1.13 (0.93-1.08) H 07/19/17 16:30 APTT 57.3 Seconds (25.1-36.5) H 07/21/17 06:30 - Constitutional Appears: Non-toxic, No Acute Distress - Head Exam Head Exam: ATRAUMATIC - Eye Exam Eye Exam: EOMI - ENT Exam ENT Exam: Mucous Membranes Moist - Neck Exam Neck Exam: Full ROM - Respiratory Exam Respiratory Exam: Clear to Ausculation Bilateral, NORMAL BREATHING PATTERN. absent: Rhonchi, Wheezes - Cardiovascular Exam Cardiovascular Exam: +S1, +S2. absent: Bradycardia, Tachycardia - GI/Abdominal Exam GI & Abdominal Exam: Guarding, Soft, Tenderness Additional comments: TTP in RLQ, RUQ, voluntary gaurding on palpation - Extremities Exam Extremities Exam: absent: Calf Tenderness - Back Exam Back Exam: absent: CVA tenderness (L), CVA tenderness (R) - Neurological Exam Neurological Exam: Alert, Awake, Oriented x3 - Psychiatric Exam Psychiatric exam: Normal Affect - Skin Skin Exam: Dry, Intact. absent: Rash Assessment and Plan - Assessment and Plan (Free Text) Assessment: 62 year old male who presented with severe abdominal pain with CT angio abdomen/ pelvis shows SMA occlusion and narrow of celiac artery, distal transverse colon thickening Plan: - Serial Lactate and WBC - IVF hydration - continue IV abx - Analgesics PRN - Continue anticoagulation & anti-platelet - serial abdominal exams - f/u IR recs - recommend cardiology eval for possible source of possible emboli - Further recs per surgical attending Lino Andersen PGY1
[2017-07-21] MEDS: HYDROmorphone 0.5 mg/0.5 ml ISec IVP PRN (09:08)
--- NOTE | 2017-07-21 14:48 | CARD ---
APPROVED REPORT EXAM: Two-dimensional and M-mode echocardiogram with Doppler and color Doppler. INDICATION CARDIAC SOURCE OF EMBOLUS 2D DIMENSIONS Left Atrium (2D)3.6 (1.6-4.0cm)IVSd1.1 (0.7-1.1cm) LVDd4.2 (3.9-5.9cm)PWd1.1 (0.7-1.1cm) LVDs3.1 (2.5-4.0cm)FS (%) 25.8 % LVEF (%)51.1 (>50%) M-Mode DIMENSIONS Aortic Root2.50 (2.2-3.7cm)Aortic Cusp Exc.1.60 (1.5-2.0cm) Aortic Valve AoV Peak Kijpitje686.0cm/Kimi Peak GR.10mmHg Mitral Valve E/A ratio0.0 TDI E/Lateral E'0.0E/Medial E'0.0 Tricuspid Valve TR Peak [id number] [id number] Peak Gr.22mmHg [id number] LEFT VENTRICLE The left ventricle is normal size. There is normal left ventricular wall thickness. The left ventricular function is normal. The left ventricular ejection fraction is within the normal range. There is normal LV segmental wall motion. RIGHT VENTRICLE The right ventricle is normal size. The right ventricular systolic function is normal. ATRIA The left atrium size is normal. The right atrium size is normal. The interatrial septum is intact with no evidence for an atrial septal defect. AORTIC VALVE The aortic valve is normal in structure. No aortic regurgitation is present. There is no aortic valvular stenosis. MITRAL VALVE The mitral valve is normal in structure. There is no mitral valve regurgitation noted. There is no mitral valve stenosis. TRICUSPID VALVE The tricuspid valve is normal in structure. There is mild tricuspid regurgitation. PULMONIC VALVE The pulmonary valve is normal in structure. GREAT VESSELS The aortic root is normal in size. The IVC is normal in size and collapses >50% with inspiration. PERICARDIAL EFFUSION There is no pleural effusion. There is no pericardial effusion. <Conclusion> Normal study.
[2017-07-21] MEDS: Heparin25000 units/250ml 1/2NS 25,000 UNITS/250 ML BAG IV PRN (18:02)
--- NOTE | 2017-07-21 18:54 | CON ---
REASON FOR CONSULTATION: Mesenteric ischemia. HISTORY OF PRESENT ILLNESS: The patient is a 62-year-old chronic smoker who presented for the second time in the emergency room in two days with abdominal pain, describes the pain as constant, increase in severity with food intake and associated with diarrhea. He has been having this kind of pain postprandial pain on and off for a month. Denies any weight loss. The patient has known vasculopathy and had made multiple trips to the angio suite. On his last presentation in 02/2017, he had no abdominal pain at that point, he was noted to have occluded superior mesenteric artery and an occluded right femoral popliteal artery. There was also a large meandering artery of [place] and a large NURY. On this admission, CT angiogram again confirmed the presence of SMA occlusion and the NURY is no longer visible. Celiac axis has less than 50% stenosis and the hepatic artery has reconstituted distal portion of his superior mesenteric artery. He was treated on admission with hydration, n.p.o., as well as antibiotics and his white count has decreased from 17,000 to 12,000. PAST MEDICAL HISTORY: The patient is a known smoker. 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 SOCIAL HISTORY: He is a smoker. Smokes less than a pack a day, he was smoking all the way up to the present admission. PAST SURGICAL HISTORY: Insignificant. REVIEW OF SYSTEMS: Otherwise unremarkable. FAMILY HISTORY: He has no history of any thrombotic or embolic disease. PHYSICAL EXAMINATION: GENERAL: Shows a slender male in no distress. HEENT: Is within normal limits. LUNGS: Clear. CARDIAC: Show regular rhythm. ABDOMEN: Soft. Currently has no tenderness and active bowel sounds. EXTREMITIES: Examination of his lower extremities revealed palpable femoral pulses and no distal pulses. There is no tissue loss. LABORATORY DATA: The patient was admitted with a hemoglobin of 17.6, which has dropped to 12.2 on hydration. His WBC is also 17.6. 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 Currently, the abdominal pain has improved. The case was discussed with Dr. Kulkarni and Dr. Will. He will be given a trial of endovascular revascularization of the visceral vessel. Surgery will be considered as a last effort provided his hemoglobin can be controlled to 14 or below. Ethel Salinas MD [facility] # [id number] AUGUST
--- NOTE | 2017-07-21 22:55 | PN ---
DATE: 07/21/2017 SUBJECTIVE: This patient was seen and evaluated today, feels much better. No complaints of any abdominal pain, tolerating the diet well. The patient is on IV heparin and also aspirin. PHYSICAL EXAMINATION: VITAL SIGNS: Temperature is 97.6, pulse is 71, and blood pressure 119/80. HEENT: Atraumatic. Anicteric. NECK: Supple. HEART: S1 and S2 heard. LUNGS: Bilateral air entry present. ABDOMEN: Soft. Bowel sounds present. EXTREMITIES: No cyanosis. No clubbing. LABORATORY DATA: Hemoglobin 15.5, hematocrit 45.3, WBC 12.2, platelets 291. BUN 7 and creatinine 0.6. IMPRESSION: This is a 62-year-old patient with peripheral vascular disease, admitted with acute worsening of the abdominal pain. CT angiogram showed mesenteric stenosis and also superior mesenteric artery with extensive collateral. The patient has secondary polycythemia, presently on aspirin and heparin, clinically improving. The patient is planned for endovascular revascularization in a.. Vascular surgical note reviewed. Thank you very much for allowing us to participate in the care of the patient. Kane Zaragoza MD
--- NOTE | 2017-07-22 03:18 | PN ---
DATE: 07/21/2017 SUBJECTIVE: The patient was seen this Thursday in room 564, bed 2. He was in bed, comfortable, abdominal pain has been subsided almost completely. Much of my work today was spent in coordinating efforts between process consultant physicians. I spoke particularly with Dr. Justice Will regarding the interventional radiology options for this patient given his symptoms to these findings. Because this was his second hospital stay in the last two weeks, with the first one being an overnight stay and returned in the following day with continued pain and because of the thrombus seen on this CT angiogram, as much as I would like to take a conservative approach with smoking cessation, aspirin and Plavix and perhaps systemic anticoagulation. I must agree with opinion of Dr. Justice Will to proceed in the direction of catheterization and angiogram of the mesenteric arteries with possible thrombus suction or stent placement, to proceed tomorrow. Venancio Hector MD
[2017-07-22] MEDS: metroNIDAZOLE IV 500 mg/100 ml 500 MG/100 ML BAG IVPB SCH ×4 (05:17→22:08)
[2017-07-22] MEDS: Lactated Ringer's 1,000 ML IV SCH (05:19)
[2017-07-22 07:04] LABS: BASO # 0.02 K/mm3 (0.0-2.0); BASO % 0.2 % (0.0-3.0); EOS # 0.7 (0.0-0.7); GRAN # 4.94 (1.4-6.5); GRAN % 59.1 % (50.0-68.0); HEMOGLOBIN 14.9 g/dL (14.0-18.0); LYMPH # 2.1 (1.2-3.4); LYMPH % 24.7 % (22.0-35.0); MEAN CELL VOLUME 86.7 fl (80.0-105.0); MEAN CORPUSCULAR HEMOGLOBIN 29.6 pg (25.0-35.0); MEAN CORPUSCULAR HGB CONC 34.1 g/dl (31.0-37.0); MEAN PLATELET VOLUME 10.1 fl (7.0-11.0); MONO # 0.7 (0.1-0.6); RBC 5.04 10^6/uL (3.5-6.1); WHITE BLOOD COUNT 8.4 10^3/ul (4.5-11.0)
[2017-07-22 07:23] LABS: ALB/GLOB RATIO 1.2 (1.1-1.8); ALBUMIN 3.3 g/dL (3.0-4.8); ALT/SGPT 25 U/L (7-56); AST/SGOT 19 U/L (17-59); BLOOD UREA NITROGEN 3 mg/dL (7-21); CALCIUM 8.9 mg/dL (8.4-10.5); GFR AFRICAN-AMERICAN > 60; GFR NON-AFRICAN AMERICAN > 60
[2017-07-22] MEDS ORDERED: Midazolam 2 MG/2 ML VIAL ONE ×3 (08:13→09:37)
[2017-07-22] MEDS ORDERED: Lidocaine 2% Inj (20ml) ONE (08:13)
[2017-07-22] MEDS ORDERED: Nitroglycerin 50mg in D5W 50 MG/250 ML BOTTLE IV ONE (08:14)
[2017-07-22] MEDS ORDERED: Iodixanol 320 MG/ML 200 ML BOTTLE IV ONE (08:14)
[2017-07-22] MEDS ORDERED: HEPARIN SODIUM/NS 2,000 ML IV ONE (08:14)
[2017-07-22] MEDS ORDERED: Iodixanol 320 MG/ML 100 ML BOTTLE IV ONE ×2 (08:14→09:56)
[2017-07-22] MEDS ORDERED: HEPARIN SODIUM/NS 1,000 ML IV ONE (09:56)
[2017-07-22] MEDS ORDERED: Morphine 5 MG/ML SYRINGE ONE (10:46)
[2017-07-22] MEDS ORDERED: HYDROmorphone 0.5 mg/0.5 ml ISec ONE ×3 (11:11→15:19)
[2017-07-22] MEDS: HYDROmorphone 0.5 mg/0.5 ml ISec IVP PRN ×3 (11:15→20:11)
[2017-07-22] MEDS ORDERED: HYDROmorphone 1 mg/ml ISec IVP STA (11:39)
[2017-07-22] MEDS ORDERED: HYDROmorphone 0.5 mg/0.5 ml ISec IVP STA (11:41)
--- NOTE | 2017-07-22 15:14 | CP.PCM.PN ---
Subjective - Date & Time of Evaluation Date of Evaluation: 07/22/17 Time of Evaluation: 09:00 - Subjective Subjective: Surgery Progress note. Dr. Kulkarni Pt seen and examined at bedside in PACU. Patient resting comfortably s/p having intervention by IR. Still c/o mild abdominal pain, but does report that he is hungry. Denies any N/V/D. No F/C. No new complaints. Objective - Vital Signs/Intake and Output Vital Signs (last 24 hours): Temp Pulse Resp BP Pulse Ox 98.0 F 69 16 149/85 100 07/22/17 15:00 07/22/17 15:00 07/22/17 15:00 07/22/17 15:00 07/22/17 07:30 Intake and Output: 07/22/17 07/22/17 06:59 18:59 Intake Total 4476 Balance 4476 - Medications Medications: Current Medications Aspirin (Ecotrin) 81 mg PO DAILY [facility] Last Admin: 07/22/17 10:07 Dose: Not Given Clopidogrel Bisulfate (Plavix) 75 mg PO DAILY [facility] Last Admin: 07/22/17 10:07 Dose: Not Given Hydromorphone HCl (Dilaudid) 1 mg IVP Q4 PRN PRN Reason: Pain, severe (8-10) Last Admin: 07/22/17 11:15 Dose: 1 mg Lactated Ringer's (Lactated Ringer's) 1,000 mls @ 150 mls/hr IV .Q6H40M [facility] Last Admin: 07/22/17 05:19 Dose: 150 mls/hr Metronidazole (Flagyl) 500 mg in 100 mls @ 100 mls/hr IVPB Q8 [facility] PRN Reason: Protocol Last Admin: 07/22/17 13:56 Dose: Not Given Ceftriaxone Sodium 1,000 mg/ (Sodium Chloride) 100 mls @ 100 mls/hr IVPB Q24H [facility] PRN Reason: Protocol Last Admin: 07/21/17 21:10 Dose: 100 mls/hr Ondansetron HCl (Zofran Inj) 4 mg IVP ONCE PRN PRN Reason: Nausea/Vomiting Last Admin: 07/22/17 11:25 Dose: 4 mg Pantoprazole Sodium (Protonix Ec Tab) 40 mg PO ACB [facility] - Labs Labs: 07/22/17 06:00 07/22/17 06:00 PT 12.3 SECONDS (9.4-12.5) 07/19/17 16:30 INR 1.13 (0.93-1.08) H 07/19/17 16:30 APTT 35.2 Seconds (25.1-36.5) 07/22/17 06:30 - Constitutional Appears: Well, Non-toxic, No Acute Distress - Head Exam Head Exam: ATRAUMATIC, NORMAL INSPECTION, NORMOCEPHALIC - Eye Exam Eye Exam: EOMI - ENT Exam ENT Exam: Mucous Membranes Moist - Respiratory Exam Respiratory Exam: NORMAL BREATHING PATTERN. absent: Accessory Muscle Use, Respiratory Distress - Cardiovascular Exam Cardiovascular Exam: absent: JVD - GI/Abdominal Exam GI & Abdominal Exam: Soft Additional comments: mild tender to palpation. No Rebound, no guarding. - Extremities Exam Extremities Exam: Normal Inspection. absent: Calf Tenderness - Neurological Exam Neurological Exam: Alert, Awake, Oriented x3 - Psychiatric Exam Psychiatric exam: Normal Affect, Normal Mood - Skin Skin Exam: Dry, Intact, Normal Color, Warm Assessment and Plan - Assessment and Plan (Free Text) Assessment: 62yo M with SMA occlusion; S/p SMA stent by IR 07/22/16. - f/u AM labs including: CBC and Lactate - As per IR, recommend holding enteral feeds until tomorrow AM, 07/23. May start CLD in AM and ADAT - As per IR, may start DOAC tomorrow and continue ASA 81. No need to resume Plavix. - we will continue to monitor for signs of ischemic disease with serial abd exams and clinical status Further recs as per Dr. Shad Wilson PGY1 surgery pager: [phone]
--- NOTE | 2017-07-22 22:28 | CON ---
DATE: 07/22/2016 REFERRING PHYSICIAN: Dr. Hector. REASON FOR CONSULTATION: Possible cardiac source of embolus. HISTORY OF PRESENT ILLNESS: This is a 62-year-old man with a fairly complex past medical history including severe peripheral vascular disease and recent mesenteric ischemia, who was admitted on 07/19/2017 with recurrent abdominal pain. He was found to have occlusion of his superior mesenteric artery and possible cardiac source of embolus was raised. Evaluation was requested. He denies any prior cardiac history. He underwent mesenteric angiography today and stenting of his SMA. He was seen in the recovery room and complaining of abdominal discomfort. He denies any prior chest pain. He has been a heavy smoker for many years, but expressed that he will stop at this time. He is not hypertensive. He believes his cholesterol is normal. He is not diabetic. PAST MEDICAL HISTORY: His past history is known for the problems mentioned above. He has undergone prior peripheral angiograms and interventions. SOCIAL HISTORY: He smokes more than a pack per day for many years. FAMILY HISTORY: Unremarkable for premature heart disease. REVIEW OF SYSTEMS: Ten-point review of systems is notable mainly for problems as mentioned above. PHYSICAL EXAMINATION: GENERAL: He is a middle-aged man, who appears moderately uncomfortable at the present time. VITAL SIGNS: His blood pressure is 148/80 with a pulse of 76, respirations are 16. He is currently in sinus rhythm. He is afebrile. HEENT: Normocephalic, atraumatic. Neck: Supple. No JVD noted. CHEST: Bilateral scattered rhonchi heard. HEART: PMI in normal position with no pathologic murmurs or gallops noted. ABDOMEN: Distended. Bowel sounds are present. Moderate diffuse tenderness is noted. EXTREMITIES: No edema with diminished distal pulses. SKIN: Warm and dry. PSYCHIATRIC: Normal mood and affect. NEUROLOGIC: No gross motor or sensory deficit is appreciable. DIAGNOSTIC DATA: Recent blood work revealed a white count of 8.4, hemoglobin and hematocrit of 14.9 and 43.7 with a platelet count of 268,000. Potassium 3.9. BUN and creatinine are 3 and 0.7. Echocardiogram was reviewed and reveals normal chamber size with normal LV systolic function. No significant valvular abnormalities are noted. Chest x-ray reveals bibasilar atelectasis, normal cardiac silhouette. Electrocardiogram reveals sinus rhythm with supraventricular premature beats, left atrial abnormality and rightward axis. IMPRESSION: Mesenteric ischemia secondary to superior mesenteric artery occlusion, source uncertain. Likelihood of cardiac source of embolus appears less likely given the absence of atrial fibrillation clinically as well as relatively normal-appearing echocardiogram and no evidence of chamber enlargement or left ventricular systolic dysfunction. 1. Severe peripheral vascular disease, probable advanced atherosclerosis. 2. Severe tobacco abuse. 3. Rest of problems as noted. RECOMMENDATIONS: 1. At this time, the resumption of anticoagulant therapy would be advisable assuming no surgical intervention is necessary for his mesenteric ischemia, which hopefully will improve now with improved blood flow after his intervention today. 2. An eventual pharmacologic stress test would be advisable to screen for cardiac ischemia. 3. Smoking abstinence obviously was strongly emphasized to him. Thank you for this consultation. We will be happy to follow along through his hospital course as needed. Danish Smith MD
[2017-07-23 06:09] LABS: BASO # 0.02 K/mm3 (0.0-2.0); BASO % 0.2 % (0.0-3.0); EOS # 0.4 (0.0-0.7); EOS % 4.1 % (1.5-5.0); GRAN # 6.59 (1.4-6.5); GRAN % 70.2 % (50.0-68.0); HEMOGLOBIN 13.7 g/dL (14.0-18.0); LYMPH # 1.4 (1.2-3.4); LYMPH % 14.6 % (22.0-35.0); MEAN CELL VOLUME 85.8 fl (80.0-105.0); MEAN CORPUSCULAR HEMOGLOBIN 29.1 pg (25.0-35.0); MEAN CORPUSCULAR HGB CONC 33.9 g/dl (31.0-37.0); MEAN PLATELET VOLUME 10.3 fl (7.0-11.0); MONO % 10.9 % (1.0-6.0); RBC 4.71 10^6/uL (3.5-6.1); RED CELL DISTRIBUTION WIDTH 13.8 % (11.5-14.5); WHITE BLOOD COUNT 9.4 10^3/ul (4.5-11.0)
[2017-07-23] MEDS: metroNIDAZOLE IV 500 mg/100 ml 500 MG/100 ML BAG IVPB SCH ×2 (06:25→13:30)
[2017-07-23 07:19] LABS: ALB/GLOB RATIO 1.1 (1.1-1.8); ALT/SGPT 31 U/L (7-56); AST/SGOT 26 U/L (17-59); BLOOD UREA NITROGEN 4 mg/dL (7-21); CALCIUM 8.4 mg/dL (8.4-10.5); GFR AFRICAN-AMERICAN > 60; GFR NON-AFRICAN AMERICAN > 60
[2017-07-23] MEDS ORDERED: Potassium Chloride 20 mEq ER Tab PO ONE (07:48)
[2017-07-23] MEDS: Pantoprazole 40 mg EC Tab PO SCH (09:10)
[2017-07-23 10:19] VITALS: O2SAT 96
--- NOTE | 2017-07-23 10:20 | CP.PCM.PN ---
Subjective - Date & Time of Evaluation Date of Evaluation: 07/23/17 Time of Evaluation: 07:35 - Subjective Subjective: Surgery Progress note. Dr. Kulkarni Pt seen and examined at bedside. No acute events overnight reported as per nursing staff. Patient reports vomit x1 yesterday evening. States that he did not have any food apart from liquids yesterday, although he was very hungry, "wanted to be safe and take it easy." Denies any N/V/D. Abd pain improved compared to previous. No new complaints. Objective - Vital Signs/Intake and Output Vital Signs (last 24 hours): Temp Pulse Resp BP Pulse Ox 98.0 F 74 22 160/74 H 100 07/22/17 17:30 07/22/17 17:30 07/22/17 17:30 07/22/17 17:30 07/22/17 07:30 Intake and Output: 07/23/17 07/23/17 06:59 18:59 Intake Total 0 Balance 0 - Medications Medications: Current Medications Aspirin (Ecotrin) 81 mg PO DAILY [facility] Last Admin: 07/23/17 09:10 Dose: 81 mg Clopidogrel Bisulfate (Plavix) 75 mg PO DAILY [facility] Last Admin: 07/22/17 10:07 Dose: Not Given Hydromorphone HCl (Dilaudid) 1 mg IVP Q4 PRN PRN Reason: Pain, severe (8-10) Last Admin: 07/23/17 00:00 Dose: 1 mg Lactated Ringer's (Lactated Ringer's) 1,000 mls @ 150 mls/hr IV .Q6H40M [facility] Last Admin: 07/22/17 05:19 Dose: 150 mls/hr Metronidazole (Flagyl) 500 mg in 100 mls @ 100 mls/hr IVPB Q8 [facility] PRN Reason: Protocol Last Admin: 07/23/17 06:25 Dose: 100 mls/hr Ceftriaxone Sodium 1,000 mg/ (Sodium Chloride) 100 mls @ 100 mls/hr IVPB Q24H [facility] PRN Reason: Protocol Last Admin: 07/22/17 20:50 Dose: 100 mls/hr Ondansetron HCl (Zofran Inj) 4 mg IVP ONCE PRN PRN Reason: Nausea/Vomiting Last Admin: 07/22/17 15:35 Dose: 4 mg Pantoprazole Sodium (Protonix Ec Tab) 40 mg PO ACB [facility] Last Admin: 07/23/17 09:10 Dose: 40 mg - Labs Labs: 07/23/17 05:30 07/23/17 05:30 PT 12.3 SECONDS (9.4-12.5) 07/19/17 16:30 INR 1.13 (0.93-1.08) H 07/19/17 16:30 APTT 35.2 Seconds (25.1-36.5) 07/22/17 06:30 - Constitutional Appears: Well, Non-toxic, No Acute Distress - Head Exam Head Exam: ATRAUMATIC, NORMAL INSPECTION, NORMOCEPHALIC - Eye Exam Eye Exam: EOMI, Normal appearance - ENT Exam ENT Exam: Mucous Membranes Moist - Respiratory Exam Respiratory Exam: NORMAL BREATHING PATTERN. absent: Accessory Muscle Use, Respiratory Distress - Cardiovascular Exam Cardiovascular Exam: absent: JVD - GI/Abdominal Exam GI & Abdominal Exam: Soft Additional comments: mild tenderness to palpation diffusely, worse in lower abd. No rebound, no guarding. - Extremities Exam Extremities Exam: Normal Inspection. absent: Calf Tenderness - Neurological Exam Neurological Exam: Alert, Awake, Oriented x3 - Psychiatric Exam Psychiatric exam: Normal Affect, Normal Mood - Skin Skin Exam: Dry, Intact, Normal Color, Warm Assessment and Plan - Assessment and Plan (Free Text) Assessment: 62yo M with SMA occlusion; S/p SMA stent by IR 07/22/16. - May start liquids this morning. ADAT - As per IR: may start DOAC and continue ASA 81. No need to resume Plavix. - we will continue to monitor for signs of ischemic disease with serial abd exams and patient's clinical status - Encourage OOBTC, ambulation Further recs as per Dr. Shad Wilson PGY1 surgery pager: [phone]
[2017-07-23] MEDS: Lactated Ringer's 1,000 ML IV SCH (11:18)
[2017-07-23 17:24] LABS: INR 1.28 (0.93-1.08); PROTHROMBIN TIME 14.7 SECONDS (9.4-12.5)
--- NOTE | 2017-07-23 17:30 | PN ---
DATE: 07/23/2017 SUBJECTIVE: The patient is seen lying in bed on 5R. He feels somewhat better. His abdominal pain has not completely resolved, but is much improved. He is afraid to eat food at this time. CURRENT MEDICATIONS: Include Rocephin, Dilaudid p.r.n., Ecotrin, Flagyl, Plavix 75 mg daily, Protonix. OBJECTIVE: GENERAL: He is a middle-aged man, appears somewhat anxious. VITAL SIGNS: His blood pressure is 116/64, the pulse is 68, respirations are 14, he is afebrile. HEENT: No JVD. CHEST: A few scattered rhonchi noted. HEART: PMI in normal position. No pathological graft is noted. ABDOMEN: Soft with mild diffuse tenderness. Bowel sounds are present. EXTREMITIES: No edema with diminished distal pulses. DIAGNOSTIC DATA: Potassium is 3.1, BUN and creatinine of 4 and 0.6. Lactic acid is 1.1. White count 9.4, hemoglobin and hematocrit 13.7 and 40.4 with platelet count of 248,000. IMPRESSION: 1. Recent mesenteric ischemia, status post angioplasty and stenting of superior mesenteric artery, clinically improved. 2. Severe peripheral vascular disease. 3. Longstanding tobacco abuse. RECOMMENDATIONS: At this time, full anticoagulation should be initiated with either warfarin or a direct oral anticoagulant. Pradaxa might be preferred given its ability to be reversed quickly should urgent surgery be necessary. This would be preferable to aspirin and Plavix as he has had evidence of mesenteric thrombosis in the setting of aspirin and Plavix use. He does have some concerns over cost of medication as he does not have a prescription plan. Warfarin therapy may be most economical for him; however, the need for regular monitoring and potential drug interactions was discussed with him. At this time if surgery is not necessary, I would initiate anticoagulant therapy today. An eventual outpatient stress test should be planned. We will be happy to follow along as needed. Danish Smith MD
--- NOTE | 2017-07-23 17:39 | CP.PCM.PN ---
<Marilin Torres - Last Filed: 07/23/17 17:39> Subjective - Date & Time of Evaluation Date of Evaluation: 07/23/17 Time of Evaluation: 10:10 - Subjective Subjective: Seen and examined at the bedside earlier today, chart review. Patient is status post SMA stenting by IR yesterday. Patient denies nausea, vomiting, or abdominal pain this a.m., had vomiting last night, no hematemesis. Tolerated full liquid diet this morning. Objective - Vital Signs/Intake and Output Vital Signs (last 24 hours): Temp Pulse Resp BP Pulse Ox 98.2 F 68 20 116/64 96 07/23/17 07:30 07/23/17 07:30 07/23/17 07:30 07/23/17 07:30 07/23/17 07:30 Intake and Output: 07/23/17 07/23/17 06:59 18:59 Intake Total 0 Balance 0 - Medications Medications: Current Medications Aspirin (Ecotrin) 81 mg PO DAILY [facility] Last Admin: 07/23/17 09:10 Dose: 81 mg Hydromorphone HCl (Dilaudid) 1 mg IVP Q4 PRN PRN Reason: Pain, severe (8-10) Last Admin: 07/23/17 00:00 Dose: 1 mg Ondansetron HCl (Zofran Inj) 4 mg IVP ONCE PRN PRN Reason: Nausea/Vomiting Last Admin: 07/22/17 15:35 Dose: 4 mg Pantoprazole Sodium (Protonix Ec Tab) 40 mg PO ACB [facility] Last Admin: 07/23/17 09:10 Dose: 40 mg Warfarin Sodium (Coumadin) 10 mg PO 1800 [facility] PRN Reason: Protocol Stop: 07/26/17 16:01 - Labs Labs: 07/23/17 05:30 07/23/17 05:30 PT 14.7 SECONDS (9.4-12.5) H 07/23/17 16:55 INR 1.28 (0.93-1.08) H 07/23/17 16:55 APTT 35.2 Seconds (25.1-36.5) 07/22/17 06:30 - Constitutional Appears: No Acute Distress - Eye Exam Eye Exam: Normal appearance. absent: Scleral icterus - ENT Exam ENT Exam: Mucous Membranes Moist - Neck Exam Neck Exam: Normal Inspection - Respiratory Exam Respiratory Exam: NORMAL BREATHING PATTERN. absent: Respiratory Distress - Cardiovascular Exam Cardiovascular Exam: +S1, +S2 - GI/Abdominal Exam GI & Abdominal Exam: Soft, Normal Bowel Sounds. absent: Guarding, Tenderness, Rebound - Extremities Exam Extremities Exam: absent: Calf Tenderness, Pedal Edema Additional comments: left upper arm/brachial dressing dry and intact some edema, positive sensation and movement, patient denies discomfort - Back Exam Additional comments: patient back is noted to be radiated, patient states slight itchiness but reports is probably constipated to him laying on his back, no other areas of erythema or complaints of itchiness. Skin dry and intact. - Neurological Exam Neurological Exam: Alert, Awake, Oriented x3 - Skin Skin Exam: Dry, Warm Assessment and Plan - Assessment and Plan (Free Text) Assessment: Assessment: Status post SMA stent for SMA occlusion History of PVD Status post acute abdominal pain Plan: Advance diet as tolerated, recommend low fat continue GI prophylaxis On aspirin 81 mg Anticoagulant as per vascular recommendations, discussed with PCP Discussed with patient he would benefit from an elective outpatient colonoscopy when optimal, as patient will be started on anticoagulants. Seen and discussed with Dr. Zaragoza. <Kane Zaragoza V - Last Filed: 07/23/17 22:25> Objective - Vital Signs/Intake and Output Vital Signs (last 24 hours): Temp Pulse Resp BP Pulse Ox 98.3 F 83 20 120/68 96 07/23/17 16:00 07/23/17 16:00 07/23/17 16:00 07/23/17 16:00 07/23/17 16:00 Intake and Output: 07/23/17 07/24/17 18:59 06:59 Intake Total 720 Balance 720 - Medications Medications: Current Medications Aspirin (Ecotrin) 81 mg PO DAILY [facility] Last Admin: 07/23/17 09:10 Dose: 81 mg Hydromorphone HCl (Dilaudid) 1 mg IVP Q4 PRN PRN Reason: Pain, severe (8-10) Last Admin: 07/23/17 00:00 Dose: 1 mg Ondansetron HCl (Zofran Inj) 4 mg IVP ONCE PRN PRN Reason: Nausea/Vomiting Last Admin: 07/22/17 15:35 Dose: 4 mg Pantoprazole Sodium (Protonix Ec Tab) 40 mg PO ACB [facility] Last Admin: 07/23/17 09:10 Dose: 40 mg Warfarin Sodium (Coumadin) 10 mg PO 1800 [facility] PRN Reason: Protocol Stop: 07/26/17 16:01 Last Admin: 07/23/17 17:41 Dose: 10 mg - Labs Labs: 07/23/17 05:30 07/23/17 05:30 PT 14.7 SECONDS (9.4-12.5) H 07/23/17 16:55 INR 1.28 (0.93-1.08) H 07/23/17 16:55 APTT 35.2 Seconds (25.1-36.5) 07/22/17 06:30 Attending/Attestation - Attestation I have personally seen and examined this patient.: Yes I have fully participated in the care of the patient.: Yes I have reviewed all pertinent clinical information, including history, physical exam and plan: Yes Notes (Text): This is an addendum to GI progress report dictated by Marilin Torres APN.The patient was seen and examined earlier. Medical records, lab studies, imagings were reviewed. Last 24 hours events reviewed. Agreed with the above treatment plan as outlined in Marilin Torres APN's notes the with the addition of the following Patient is feeling much better. Status post a superior mesenteric K angioplasty past Anticoagulation as per vascular recommendation Abdomen soft tolerating the diet [place] recommended elective colonoscopy in view of change of bowel habits Advised strictly to stop smoking 07/23/17 22:23
--- NOTE | 2017-07-23 19:15 | VASCULAR ---
PROCEDURE: 1. Selective celiac and SMA arteriograms. 2. Percutaneous mechanical thrombolysis of the proximal SMA thrombosis 3. SMA origin angioplasty and stent placement HISTORY: Severe acute mesenteric ischemia. SMA and NURY thrombosis on CTA. Needs revascularization PHYSICIAN(S): Justice Will M.D. TECHNIQUE: The relative risks and indications of the procedure were explained to the patient and consent obtained. The patient was hydrated prior to the procedure and the appropriate labs drawn. The patient was placed supine on the arteriogram table and the left axilla prepped and draped usual sterile fashion. Conscious sedation monitoring were provided throughout the procedure by a nurse Under ultrasound guidance, the left I brachial artery was punctured with a micropuncture set. A 5 Yemeni sheath was placed. A 5 Yemeni flush catheter was placed the abdominal aorta at the level of the mesenteric arteries and a lateral DSA abdominal aortogram performed. This revealed a widely patent celiac axis and a chronic smooth occlusion of the SMA origin. The renal arteries are patent. Attempts at crossing the chronic SMA origin occlusion with angled catheters were unsuccessful. Subsequently an 8 Yemeni hockey stick guide catheter was placed at the suspected origin of the SMA. Multiple attempts at probing inclusion with various 0.014, 0.018, and 0.035 guidewires were unsuccessful. Finally the occlusion was crossed with the back and of a 0.035 glidewire. Position was confirmed with injection of contrast. Nitroglycerin heparin were given. Percutaneous mechanical thrombolysis was performed of the SMA origin with a 5 Yemeni Angiojet catheter. Twenty-five mg of tPA was placed in the fluid. Approximately 100 seconds of treatment was performed. A small antegrade lumen was established. The SMA origin was dilated with a 6 mm balloon. Next an 8 mm x 27 mm balloon expandable stent was deployed in the SMA origin. This was subsequent dilated with a 9 mm balloon. Completion angiograms were performed. An excellent angiographic result was obtained. The sheath was removed hemostasis obtained with a Mynx device. The patient tolerated the procedure well. The thrombosed NURY was not addressed. FINDINGS: The celiac axis is widely patent. There is a smooth chronic occlusion of the SMA origin. Proximal reconstitution is appreciated. The NURY was not visualized and presumably occluded. IMPRESSION: 1.Successful proximal SMA Angiojet thrombolysis and [employer]/stent placement 2. Widely patent celiac axis
--- NOTE | 2017-07-23 20:38 | PN ---
DAILY PROGRESS NOTE DATE: SUBJECTIVE: The patient is a 62-year-old male with a past medical history positive for peripheral vascular disease, stent placement in peripheral arteries, and peripheral artery occlusion who presented to the Emergency Room complaining of abdominal pain on 07/19/2017, he was evaluated, and diagnosed with ischemic bowel. He was found to have an occlusion/thrombus of his superior mesenteric artery. Stenting was performed by Dr. Justice Will and afterwards the patient's pain was markedly relieved. Yesterday, he was started on the clear liquid diet. This morning, he ate a full liquid diet followed by a soft bland diet for lunch. When seen today, the patient is awake, alert, and oriented. He is in good spirits. He was looking forward to discharge soon. PHYSICAL EXAMINATION: VITAL SIGNS: Stable. LUNGS: Distant, but clear. HEART: Regular. ABDOMEN: Soft. Bowel sounds are normal. The patient admits to passing gas yesterday, which had quite a down today. He has not yet had a bowel movement. EXTREMITIES: Free of cyanosis, clubbing or edema. LABORATORY DATA: This morning his laboratory revealed a white blood cell count of 9.4 and hemoglobin and hematocrit of 13.7 and 40.4. Sodium is 140, potassium is 3.1, BUN is 4, and creatinine is 0.6. ASSESSMENT AND PLAN: So, at this point, I spoke with Dr. Justice Will concerning future medications. The patient needs to be anticoagulated for the rest of his life. The patient complains he does not have any medication coverage with his insurance, therefore probably could not afford Eliquis or Pradaxa therefore we are starting warfarin. I will be starting 10 mg daily for the first 2 to 3 days. We will follow his PT/INR and hopefully decreased to 5 mg a day thereafter. The patient realizes that he will be requiring to come to the office for at least monthly followups for his PT/INR levels. He is also aware of the fact that he will be discontinuing cigarette smoking in the future. As per the patient, he has discontinued cigarettes for the past 5 days already here in the hospital and does not find any craving for it. The patient will be reevaluated in the morning, anticoagulation has started as mentioned above. Sami Hector MD [facility] # [id number]
[2017-07-23 21:49] VITALS: BP 120/68; PULSE 83; TEMP 98.3
[2017-07-23] MEDS: HYDROmorphone 0.5 mg/0.5 ml ISec IVP PRN ×2 (23:31)
[2017-07-24 06:37] LABS: BASO # 0.02 K/mm3 (0.0-2.0); BASO % 0.2 % (0.0-3.0); EOS # 0.4 (0.0-0.7); EOS % 3.6 % (1.5-5.0); GRAN # 7.39 (1.4-6.5); GRAN % 72.9 % (50.0-68.0); HEMOGLOBIN 14.1 g/dL (14.0-18.0); LYMPH # 1.2 (1.2-3.4); LYMPH % 11.6 % (22.0-35.0); MEAN CELL VOLUME 85.8 fl (80.0-105.0); MEAN CORPUSCULAR HGB CONC 33.8 g/dl (31.0-37.0); MEAN PLATELET VOLUME 10.5 fl (7.0-11.0); MONO # 1.2 (0.1-0.6); MONO % 11.7 % (1.0-6.0); RBC 4.86 10^6/uL (3.5-6.1); WHITE BLOOD COUNT 10.2 10^3/ul (4.5-11.0)
[2017-07-24 07:44] LABS: ALB/GLOB RATIO 1.1 (1.1-1.8); ALBUMIN 3.2 g/dL (3.0-4.8); ALT/SGPT 27 U/L (7-56); AST/SGOT 23 U/L (17-59); BLOOD UREA NITROGEN 3 mg/dL (7-21); CALCIUM 8.6 mg/dL (8.4-10.5); GFR AFRICAN-AMERICAN > 60; GFR NON-AFRICAN AMERICAN > 60
[2017-07-24] MEDS ORDERED: POLYETHYLENE GLYCOL 3350 17 GM/Dose PACKET PO ONE (09:25)
--- NOTE | 2017-07-24 09:32 | CP.PCM.PN ---
Subjective - Date & Time of Evaluation Date of Evaluation: 07/24/17 Time of Evaluation: 07:00 - Subjective Subjective: Surgery: Dr. Kulkarni Pt seen and examined. No acute events overnight. Pt states he feels a lot better and was able to tolerate his diet last night. Admits to feeling constipated. Denies N/V, F/C. Objective - Vital Signs/Intake and Output Vital Signs (last 24 hours): Temp Pulse Resp BP Pulse Ox 98.3 F 83 20 120/68 96 07/23/17 16:00 07/23/17 16:00 07/23/17 16:00 07/23/17 16:00 07/23/17 16:00 Intake and Output: 07/24/17 07/24/17 06:59 18:59 Intake Total 960 Balance 960 - Medications Medications: Current Medications Aspirin (Ecotrin) 81 mg PO DAILY [facility] Last Admin: 07/23/17 09:10 Dose: 81 mg Docusate Sodium (Colace) 100 mg PO BID [facility] Stop: 07/26/17 10:01 Hydromorphone HCl (Dilaudid) 1 mg IVP Q4 PRN PRN Reason: Pain, severe (8-10) Last Admin: 07/23/17 23:31 Dose: 1 mg Ondansetron HCl (Zofran Inj) 4 mg IVP ONCE PRN PRN Reason: Nausea/Vomiting Last Admin: 07/22/17 15:35 Dose: 4 mg Pantoprazole Sodium (Protonix Ec Tab) 40 mg PO ACB [facility] Last Admin: 07/23/17 09:10 Dose: 40 mg Warfarin Sodium (Coumadin) 10 mg PO 1800 [facility] PRN Reason: Protocol Stop: 07/26/17 16:01 Last Admin: 07/23/17 17:41 Dose: 10 mg - Labs Labs: 07/24/17 06:00 07/24/17 06:00 PT 14.7 SECONDS (9.4-12.5) H 07/23/17 16:55 INR 1.28 (0.93-1.08) H 07/23/17 16:55 APTT 35.2 Seconds (25.1-36.5) 07/22/17 06:30 - Constitutional Appears: Well, No Acute Distress - Head Exam Head Exam: ATRAUMATIC, NORMOCEPHALIC - Eye Exam Eye Exam: Normal appearance - ENT Exam ENT Exam: Mucous Membranes Moist - Respiratory Exam Respiratory Exam: NORMAL BREATHING PATTERN - Cardiovascular Exam Cardiovascular Exam: RRR - GI/Abdominal Exam GI & Abdominal Exam: Soft. absent: Distended, Guarding, Tenderness - Neurological Exam Neurological Exam: Alert, Awake, Oriented x3 - Skin Skin Exam: Dry, Warm Assessment and Plan - Assessment and Plan (Free Text) Assessment: 62M with SMA occlusion s/p SMA stent by IR Plan: - no further surgical intervention at this time - clear for DC from surgical standpoint - further management as per cardio and primary teams - d/w Dr. Shad Vergara, PGY-3 Surgery
[2017-07-24 10:34] LABS: INR 1.91 (0.93-1.08); PROTHROMBIN TIME 22.2 SECONDS (9.4-12.5)
[2017-07-24] MEDS: Pantoprazole 40 mg EC Tab PO SCH (11:16)
--- NOTE | 2017-07-24 12:14 | CP.PCM.PN ---
<Marilin Torres - Last Filed: 07/24/17 12:14> Subjective - Date & Time of Evaluation Date of Evaluation: 07/24/17 Time of Evaluation: 10:25 - Subjective Subjective: S&E at bedside, chart reviewed, had formed BM this am, no overt GI bleeding. No new complaints, tolerating oral intake. Objective - Vital Signs/Intake and Output Vital Signs (last 24 hours): Temp Pulse Resp BP Pulse Ox 98.3 F 83 20 120/68 96 07/23/17 16:00 07/23/17 16:00 07/23/17 16:00 07/23/17 16:00 07/23/17 16:00 Intake and Output: 07/24/17 07/24/17 06:59 18:59 Intake Total 960 Balance 960 - Medications Medications: Current Medications Aspirin (Ecotrin) 81 mg PO DAILY [facility] Last Admin: 07/24/17 11:15 Dose: 81 mg Docusate Sodium (Colace) 100 mg PO BID [facility] Stop: 07/26/17 10:01 Last Admin: 07/24/17 11:15 Dose: 100 mg Hydromorphone HCl (Dilaudid) 1 mg IVP Q4 PRN PRN Reason: Pain, severe (8-10) Last Admin: 07/23/17 23:31 Dose: 1 mg Ondansetron HCl (Zofran Inj) 4 mg IVP ONCE PRN PRN Reason: Nausea/Vomiting Last Admin: 07/22/17 15:35 Dose: 4 mg Pantoprazole Sodium (Protonix Ec Tab) 40 mg PO ACB [facility]PL[facility] Last Admin: 07/24/17 11:16 Dose: 40 mg Warfarin Sodium (Coumadin) 10 mg PO 1800 [facility] PRN Reason: Protocol Stop: 07/26/17 16:01 Last Admin: 07/23/17 17:41 Dose: 10 mg - Labs Labs: 07/24/17 06:00 07/24/17 06:00 PT 22.2 SECONDS (9.4-12.5) H 07/24/17 10:00 INR 1.91 (0.93-1.08) H 07/24/17 10:00 APTT 35.2 Seconds (25.1-36.5) 07/22/17 06:30 - Constitutional Appears: No Acute Distress - Eye Exam Eye Exam: Normal appearance. absent: Scleral icterus - ENT Exam ENT Exam: Mucous Membranes Moist - Neck Exam Neck Exam: Normal Inspection - Respiratory Exam Respiratory Exam: NORMAL BREATHING PATTERN. absent: Respiratory Distress - GI/Abdominal Exam GI & Abdominal Exam: Soft, Normal Bowel Sounds. absent: Guarding, Tenderness, Rebound - Extremities Exam Extremities Exam: absent: Calf Tenderness, Pedal Edema Additional comments: left upper arm dressing dry and intact, nontender, area soft, noted eccyhmotic area, skin dry and intact. - Neurological Exam Neurological Exam: Alert, Awake, Oriented x3 - Skin Skin Exam: Dry, Warm Assessment and Plan - Assessment and Plan (Free Text) Assessment: Assessment: Status post SMA stent for SMA occlusion History of PVD Status post acute abdominal pain Plan: heart healty diet as tolerated continue GI prophylaxis On aspirin 81 mg on Coumadin on Colace monitor H/H Discussed with patient he would benefit from an elective outpatient colonoscopy. Seen and discussed with Dr. Zaragoza. <Kane Zaragoza V - Last Filed: 07/25/17 20:10> Objective - Vital Signs/Intake and Output Vital Signs (last 24 hours): Temp Pulse Resp BP Pulse Ox 98.3 F 83 18 120/68 96 07/23/17 16:00 07/23/17 16:00 07/24/17 10:00 07/23/17 16:00 07/23/17 16:00 - Labs Labs: 07/24/17 06:00 07/24/17 06:00 PT 22.2 SECONDS (9.4-12.5) H 07/24/17 10:00 INR 1.91 (0.93-1.08) H 07/24/17 10:00 APTT 35.2 Seconds (25.1-36.5) 07/22/17 06:30 Attending/Attestation - Attestation I have personally seen and examined this patient.: Yes I have fully participated in the care of the patient.: Yes I have reviewed all pertinent clinical information, including history, physical exam and plan: Yes Notes (Text): This is a delayed addendum dictation to GI progress report dictated by Marilin Torres APN.The patient was seen and examined earlier. Medical records, lab studies, imagings were reviewed. Last 24 hours events reviewed. Agreed with the above treatment plan as outlined in Marilin Torres APN's notes the with the addition of the following patient was seen and evaluated abdomen was soft no tenderness Discussed with the Dr.E Hector was also at the same time on the floor. 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 Patient was also advised to follow up with the fruit inspector Advised to stop smoking 07/25/17 20:07
[2017-07-24 13:30] VITALS: RESP 18
--- NOTE | 2017-07-25 20:05 | CP.PCM.PN ---
Subjective - Date & Time of Evaluation Date of Evaluation: 07/22/17 Time of Evaluation: 13:00 - Subjective Subjective: he feels better still has some abdominal discomfort Objective - Vital Signs/Intake and Output Vital Signs (last 24 hours): Temp Pulse Resp BP Pulse Ox 98.0 F 74 22 160/74 H 100 07/22/17 17:30 07/22/17 17:30 07/22/17 17:30 07/22/17 17:30 07/22/17 07:30 - Medications Medications: Current Medications Aspirin (Ecotrin) 81 mg PO DAILY [facility] Last Admin: 07/22/17 10:07 Dose: Not Given Clopidogrel Bisulfate (Plavix) 75 mg PO DAILY [facility] Last Admin: 07/22/17 10:07 Dose: Not Given Hydromorphone HCl (Dilaudid) 1 mg IVP Q4 PRN PRN Reason: Pain, severe (8-10) Last Admin: 07/22/17 15:20 Dose: 1 mg Lactated Ringer's (Lactated Ringer's) 1,000 mls @ 150 mls/hr IV .Q6H40M [facility] Last Admin: 07/22/17 05:19 Dose: 150 mls/hr Metronidazole (Flagyl) 500 mg in 100 mls @ 100 mls/hr IVPB Q8 [facility] PRN Reason: Protocol Last Admin: 07/22/17 14:45 Dose: 100 mls/hr Ceftriaxone Sodium 1,000 mg/ (Sodium Chloride) 100 mls @ 100 mls/hr IVPB Q24H [facility] PRN Reason: Protocol Last Admin: 07/21/17 21:10 Dose: 100 mls/hr Ondansetron HCl (Zofran Inj) 4 mg IVP ONCE PRN PRN Reason: Nausea/Vomiting Last Admin: 07/22/17 15:35 Dose: 4 mg Pantoprazole Sodium (Protonix Ec Tab) 40 mg PO ACB [facility] - Labs Labs: 07/22/17 06:00 07/22/17 06:00 PT 12.3 SECONDS (9.4-12.5) 07/19/17 16:30 INR 1.13 (0.93-1.08) H 07/19/17 16:30 APTT 35.2 Seconds (25.1-36.5) 07/22/17 06:30 - Head Exam Head Exam: ATRAUMATIC - Eye Exam Eye Exam: EOMI, PERRL - ENT Exam ENT Exam: Mucous Membranes Moist - Neck Exam Neck Exam: Full ROM. absent: Lymphadenopathy - Respiratory Exam Respiratory Exam: Clear to Ausculation Bilateral, NORMAL BREATHING PATTERN - Cardiovascular Exam Cardiovascular Exam: +S1, +S2. absent: JVD - GI/Abdominal Exam GI & Abdominal Exam: Soft. absent: Tenderness, Mass - Neurological Exam Neurological Exam: Altered, Awake, Oriented x3 Assessment and Plan - Assessment and Plan (Free Text) Assessment: status post today SMA stent placement and angioplasty. Continue antibiotics evaluation as per IR Slowly advance the diet A she would need a elect to colonoscopy. Patient May needs to be on long-term anticoagulation/antiplatelet therapy advised to avoid smoking
== END 2017-07-24 16:00 | disposition home or self-care (01) | DRG 358 ==
LOC: ED 05:13 → ERH 09:13 → 5RNO 19:01
PROVIDERS: ADMIT Internal Medicine; ATTEND Internal Medicine
PROC: 04753DZ Dilation of Superior Mesenteric Artery with Intraluminal Device, Percutaneous Approach (ICD-10-PCS; principal; 2017-07-23)
PROC: 3E06317 Introduction of Other Thrombolytic into Central Artery, Percutaneous Approach (ICD-10-PCS; 2017-07-23)
DX: K55.039 Acute (reversible) ischemia of large intestine, extent unspecified (principal); D75.1 Secondary polycythemia; K55.1 Chronic vascular disorders of intestine; J44.9 Chronic obstructive pulmonary disease, unspecified; F17.210 Nicotine dependence, cigarettes, uncomplicated; I73.9 Peripheral vascular disease, unspecified; K59.00 Constipation, unspecified

== ENCOUNTER 2018-11-03 02:29 | Inpatient (IN) | payer MEDICARE, OTHER | END 2018-11-09 14:55 | disposition home or self-care (01) | LOC: 5RSO 11-08 16:55 → ED 02:29 → ICU 11-04 16:19 → ERH 06:10 → 5RSO 08:48 ==